=== PATIENT | male | born 1955 | race Caucasian/White ===

== ENCOUNTER → 2024-02-12 10:23 | Outpatient (REF) | payer MEDICARE, SELFPAY | LOC: RCS 10:23 | PROVIDERS: ATTENDING PHYSICIAN Internal Medicine Cardiovascular Disease; FAMILY PHYSICIAN Family Medicine | DX: Q23.1 Congenital insufficiency of aortic valve (principal); I35.1 Nonrheumatic aortic (valve) insufficiency | CPT/HCPCS: 93306 ==

== ENCOUNTER → 2024-05-03 11:35 | Outpatient (REF) | payer MEDICARE, SELFPAY | LOC: RAD 11:35 | PROVIDERS: ATTENDING PHYSICIAN Thoracic Surgery (Cardiothoracic Vascular Surgery); FAMILY PHYSICIAN Family Medicine | DX: I35.0 Nonrheumatic aortic (valve) stenosis (principal); I71.21 Aneurysm of the ascending aorta, without rupture | CPT/HCPCS: 71275; 74174; Q9967 ==

== ENCOUNTER → 2024-09-03 08:54 | Outpatient (REF) | payer MEDICARE, SELFPAY | LOC: RAD 08:54 | PROVIDERS: ATTENDING PHYSICIAN Thoracic Surgery (Cardiothoracic Vascular Surgery); FAMILY PHYSICIAN Family Medicine | DX: I35.0 Nonrheumatic aortic (valve) stenosis (principal); I71.21 Aneurysm of the ascending aorta, without rupture; Z01.818 Encounter for other preprocedural examination | CPT/HCPCS: 75572; Q9967 ==

== ENCOUNTER 2024-09-06 06:04 | Day surgery (SDC) | payer MEDICARE, SELFPAY ==
[2024-09-06] VITALS (14 sets, daily range): BP systolic 102–164; BP diastolic 69–103; BMI 25.4
[2024-09-06] MEDS: LOW STRENGTH ASPIRIN 324 MG PO (06:56)
[2024-09-06] MEDS: TYLENOL 650 MG PO (12:56)
== END 2024-09-06 13:50 | disposition home or self-care (01) ==
LOC: CATH 06:04
PROVIDERS: ATTENDING PHYSICIAN Internal Medicine Interventional Cardiology; FAMILY PHYSICIAN Family Medicine; OTHER PHYSICIAN Internal Medicine Cardiovascular Disease
DX: I25.10 Atherosclerotic heart disease of native coronary artery without angina pectoris (principal); I48.0 Paroxysmal atrial fibrillation; I35.0 Nonrheumatic aortic (valve) stenosis; K21.9 Gastro-esophageal reflux disease without esophagitis; I71.21 Aneurysm of the ascending aorta, without rupture; Z79.01 Long term (current) use of anticoagulants
CPT/HCPCS: 93454; C1769; C1894; Q9967

== ENCOUNTER 2024-09-28 04:55 | Inpatient (IN) | payer MEDICARE, SELFPAY ==
[2024-08-31 11:57] VITALS: BMI 26.5
[2024-08-31 12:38] LABS: Urine Albumin Negative (Neg - Trace); Urine Bilirubin Negative (Negative); Urine Character Clear (Clear); Urine Color Yellow; Urine Glucose Negative (Negative); Urine Ketone Negative (Negative); Urine Leukocyte Negative (Negative); Urine Nitrite Negative (Negative); Urine Occult Blood Negative (Negative); Urine Specific Gravity 1.015 (<1.030); Urine Urobilinogen Negative (Neg - 1+)
[2024-08-31 12:44] LABS: % Basophils 0.7 % (0-2); % Eosinophils 0.6 % (0-6); % Immature Granulocytes 0.2 % (0-0.5); % Monocytes 10.2 % (1.7-9.3); % Neutrophils 66.3 % (42.2-75.2); Absolute Lymphocytes 1.2 10^3/uL (1.2-3.4); Absolute Monocytes 0.6 10^3/uL (0.1-0.6); Absolute Neutrophils 3.6 10^3/uL (1.4-6.5); Hematocrit 41.9 % (39.0-52.0); Hemoglobin 14.5 g/dL (13.0-18.0); Mean Corp Hgb Conc. 34.6 g/dL (33.0-37.0); Mean Corpuscular Hgb 32.1 pg (27.0-31.0); Mean Corpuscular Volume 92.7 fL (80.0-94.0); Mean Platelet Volume 9.9 fL (7.4-10.4); Nucleated Red Blood Cells % 0 % (-); Platelet Count 199 10^3/uL (130-400); Red Blood Cell Count 4.52 10^6/uL (4.70-6.10); Red Cell Dist. Width 13.2 % (11.5-14.5); White Blood Cell Count 5.4 10^3/uL (4.8-10.8)
[2024-08-31 12:47] LABS: APTT 33.2 Sec (23.4-35.0); PT 13.5 Sec (11.4-14.6)
[2024-08-31 13:03] LABS: ALT (SGPT) 21 U/L (0-50); AST (SGOT) 27 U/L (17-59); Albumin 4.3 g/dl (3.5-5.0); Alkaline Phosphatase 53 U/L (38-126); Blood Urea Nitrogen 18 mg/dl (9-20); Calcium 9.2 mg/dl (8.4-10.2); Carbon Dioxide 27 mmol/L (22-30); Chloride 101 mmol/L (98-107); Direct Bilirubin 0.2 mg/dl (0.0-0.4); Estimated Creatinine Clearance 68 ml/min; Glucose 86 mg/dl (70-99); Potassium 4.8 mmol/L (3.5-5.1); Sodium 137 mmol/L (135-145); Total Protein 6.9 g/dl (6.3-8.2); eGFR > 60.00
--- NOTE | 2024-08-31 14:01 | CM ---
Chart reviewed. Met with the patient and in PAT. Reviewed preoperative and postoperative instructions, along with showering instructions. Gave patient 2 soaps. Patient is agreeable to a home visit by CT Transitional RN. Patient currently
uses [facility] in [place], but may be changing their pharmacy after . They will update us on arrival. Patient is independent of ADLS, lives with his in a 1 STH, 2 DRE, 0 DME. Plan is for the patient to return home with CT Transitional RN.
--- NOTE | 2024-09-06 09:23 | ITS.CL.CATH ---
Laboratory Scientist - Catheterization
Cardiac Catheterization
Procedure Report:
LEFT HEART CATHETERIZATION
Date of Procedure: September 06, 2024
Referring: Dr. Zay Webster, Dr. Vega Grossman
PROCEDURES:
1. Coronary angiography
INDICATION: This is a 68-year-old gentleman with a past medical history notable for paroxysmal atrial fibrillation, aortic stenosis, and ascending thoracic aortic aneurysm. He was seen in evaluation by Dr. Webster and scheduled for aortic valve
replacement and aortic root replacement with maze and left atrial appendage exclusion. He is now referred for coronary angiography in anticipation of planned surgical intervention.
ACCESS: Right radial artery, 6 Mauritian sheath
HEMODYNAMICS : (mmHg)
AO (s/d) : 125/78
CORONARY FINDINGS
DOMINANCE: Left
LEFT MAIN: Normal
LEFT ANTERIOR DESCENDING: The LAD arises normally from the left main and runs in the anterior intraventricular groove. The mid LAD has a 30% stenosis near the origin of the first diagonal branch. The mid LAD beyond the diagonal branch has a 50-60%
stenosis with luminal irregularities noted throughout the remainder of the LAD. The distal LAD wraps around the apex
CIRCUMFLEX: The circumflex is a large-caliber dominant vessel giving rise to a large bifurcating OM1. The OM1 bifurcates proximally into 2 sizable daughter branches. The more lateral daughter branch has a 60-70% narrowing at its origin (Note: this
is the middle of the 3-OM branches to the lateral wall). OM 2 is a medium caliber vessel with minor irregularities. The circumflex continues in the AV groove supplying a sizable PDA.
RIGHT CORONARY ARTERY: The right coronary artery is a small nondominant vessel that proved difficult to selectively cannulate with either a JL 4, AR-MOD1, AR-MOD2, or AL1. Nonselective angiography suggested a low anterior origin of a small
nondominant vessel.
VENTRICULOGRAPHY: Not done
RADIATION SUMMARY: Fluoro Time (min): 19.9, Dose (mGy): 574.9, DAP (Gy.cm2) : 43.5
Closure Device: TR Band
CONCLUSIONS
1. Coronary artery disease in OM1 medial daughter branch beyond bifurcation and tandem stenosis in mid LAD
RECOMMENDATIONS
1. Followup with Dr. Webster as scheduled.
Copy to: Dr. Zay Webster, Dr. Vega Grossman
[2024-09-28] VITALS (19 sets, daily range): BP systolic 85–151; BP diastolic 59–95; BMI 25.0
--- NOTE | 2024-09-28 00:39 | W.PN.CT ---
Assessment / Plan
-
Assessment:
-S/p Standard sternotomy/CABG x 2 (In situ MORRISON to LAD, Ao to RSVG to daughter branch of OM 1)/ R LE Endoscopic vein harvest/Aortic valve replacement (27 mm bioprosthesis)/Ascending aortic replacement (30 mm straight graft (STJ to distal ascending
aorta)/Left atrial maze, open surgical [posterior wall isolation with left atrial appendage line]/LAAE [35 mm clip], by Dr. Webster, 09/28/24, pod#1
-Severe aortic valve stenosis with functional bicuspid morphology fused left and right coronary cusp with a moderate degree of aortic valve insufficiency
-Ascending aortic aneurysm measuring greater than 4.5 cm
-Mild pulmonary hypertension
-Mild TR
-Mild MR
-Mild pulm HTN
-2v CAD
-LVEF 60% per intraop DEBI
-A-fib
-GERD
-Seasonal allergies
-Diverticulosis
-Internal hemorrhoids
-Colon polyps
-S/P Colonoscopy with polypectomy, 07/03/22
-S/p Robotic Inguinal Herniorrhaphy, 06/23/2017
-Acute postop blood loss/Anemia (stable without blood transfusion)
-Acute postop atelectasis
-Acute postop hypovolemia with subsequent hypervolemia
Plan:
-No major issues overnight. Hemodynamically and neurologically intact
-Pt successfully extubated yesterday 09/28/24 @ 1625
-Weaned off Levophed last night, remains on insulin gtt per protocol
-Last CI , U/O since OR mL
-Monitor chest tube output: 2meds , L pleural
-AM cxr is pending
-Cont. current meds (ASA, Plavix, Lipitor, Amiodarone, Toprol XL; eventual d/c of Plavix and resumption of Eliquis)
-D/C'd swan and a-line @ 0500
-D/C'd ramirez catheter @ 0600
-Transfer to tele phase today once of insulin gtt per protocol
-Maintain cordis
-Maintain temporary pacer wires (will d/c before home)
-Wean off of O2 as tolerated
-Encourage use of IS
-OOB into chair/Ambulate
Subjective
-
Date of Service: September 28, 2024
Objective Data
-
Lab Results
08/31/24 12:05
08/31/24 06:30
PT 13.5 Sec (11.4-14.6) 08/31/24 12:05
INR 1.00 08/31/24 12:05
APTT 33.2 Sec (23.4-35.0) 08/31/24 12:05
[2024-09-28] MEDS: BACTROBAN 2% OINTMENT 1 APPLIC NASAL ×2 (05:44→19:07)
[2024-09-28] MEDS: LOPRESSOR 25 MG PO (05:44)
[2024-09-28] MEDS: PROTONIX 40 MG PO (05:45)
[2024-09-28] MEDS: MAGNESIUM OXIDE 500 MG PO (05:45)
--- NOTE | 2024-09-28 05:54 | PTCARENOTE ---
admitted pt into 2264. pt confirmed 2 showers and NPO since midnight. clipped, washed with CHG, blood work sent, admission and med rec completed. Postop education provided. all questions answered. meds given. awaiting [facility].
--- NOTE | 2024-09-28 06:38 | W.CVOR.SURPR ---
[facility] Surgeon Immed Pre Op
-
I have examined this patient prior to performance of the scheduled procedure.
The patient's condition is unchanged from the time of the dictated/written History and
Physical and the patient is able to undergo the scheduled procedure.
Sternotomy AVR (biological), Ascending Aorta Replacement (Wheat Procedure)
CABG x 2 (Will search for that OM branch off the first OM)
LA MAZE (Posterior wall isolation)
CAROLINE Clip
[2024-09-28 07:40] LABS: ACT+ - POC 98 Seconds (82-134)
--- NOTE | 2024-09-28 07:47 | CM ---
Reviewed chart. Mr. St is in the operating room today. Prior to admission he resides with his spouse in a one story home with two steps to enter. Prior to admission he was independent with ambulation and adls. He does not have any DME in the
home . He has a prescription plan and uses [facility]. Medial work-up in progress. The discharge plan is to return home with his spouse and a home visit by the Transitional Care Nurse when medically stable.
[2024-09-28 08:03] LABS: Urine Albumin Negative (Neg - Trace); Urine Bilirubin Negative (Negative); Urine Character Clear (Clear); Urine Color Yellow; Urine Glucose Negative (Negative); Urine Ketone Negative (Negative); Urine Leukocyte Negative (Negative); Urine Nitrite Negative (Negative); Urine Occult Blood Negative (Negative); Urine Specific Gravity 1.015 (<1.030); Urine Urobilinogen Negative (Neg - 1+)
[2024-09-28 08:59] LABS: ACT+ - POC 409 Seconds (82-134)
[2024-09-28 09:08] LABS: ACT+ - POC 496 Seconds (82-134)
[2024-09-28 09:26] LABS: B.E. - POC -0.2 mmol/L; Glucose - POC 98 mg/dl (70-99); HCO3 - POC 25 mmol/L (21-28); Hematocrit - POC 33 % PCV (42-52); Hemodilution- POC No; Hemoglobin Calculated - POC 11.1; Ionized Calcium - POC 1.15 mmol/L (1.15-1.33); O2 Saturation %Calculated-POC 99.9 % (94-98); PCO2 - POC 41 mmHg (35-48); PO2 - POC 274 mmHg (83-108); POC Comment PRE; Potassium - POC 4.1 mmol/L (3.5-5.1); Sodium - POC 141 mmol/L (136-145); Specimen Type - POC Arterial; pH - POC 7.39 (7.35-7.45)
[2024-09-28 09:39] LABS: ACT+ - POC 512 Seconds (82-134)
[2024-09-28 09:59] LABS: B.E. - POC 2.8 mmol/L; Glucose - POC 116 mg/dl (70-99); HCO3 - POC 27 mmol/L (21-28); Hematocrit - POC 29 % PCV (42-52); Hemodilution- POC Yes; Hemoglobin Calculated - POC 9.8; Ionized Calcium - POC 1.01 mmol/L (1.15-1.33); PCO2 - POC 37 mmHg (35-48); PO2 - POC 347 mmHg (83-108); POC Comment CPB; Potassium - POC 4.8 mmol/L (3.5-5.1); Sodium - POC 138 mmol/L (136-145); Specimen Type - POC Arterial; pH - POC 7.47 (7.35-7.45)
[2024-09-28 10:11] LABS: ACT+ - POC 460 Seconds (82-134)
[2024-09-28 10:36] LABS: B.E. - POC 1.6 mmol/L; Glucose - POC 172 mg/dl (70-99); HCO3 - POC 26 mmol/L (21-28); Hematocrit - POC 33 % PCV (42-52); Hemodilution- POC Yes; Hemoglobin Calculated - POC 11.3; Ionized Calcium - POC 1.04 mmol/L (1.15-1.33); O2 Saturation %Calculated-POC 99.9 % (94-98); PCO2 - POC 38 mmHg (35-48); PO2 - POC 241 mmHg (83-108); POC Comment CPB; Potassium - POC 5.1 mmol/L (3.5-5.1); Sodium - POC 138 mmol/L (136-145); Specimen Type - POC Arterial; pH - POC 7.44 (7.35-7.45)
[2024-09-28 10:48] LABS: ACT+ - POC 511 Seconds (82-134)
[2024-09-28 11:25] LABS: ACT+ - POC 523 Seconds (82-134)
[2024-09-28 11:51] LABS: B.E. - POC 1.2 mmol/L; Glucose - POC 124 mg/dl (70-99); HCO3 - POC 26 mmol/L (21-28); Hematocrit - POC 32 % PCV (42-52); Hemodilution- POC Yes; Hemoglobin Calculated - POC 10.9; Ionized Calcium - POC 1.11 mmol/L (1.15-1.33); O2 Saturation %Calculated-POC 99.9 % (94-98); PCO2 - POC 42 mmHg (35-48); PO2 - POC 281 mmHg (83-108); POC Comment CPB; Sodium - POC 142 mmol/L (136-145); Specimen Type - POC Arterial
[2024-09-28 11:51] LABS: B.E. - POC 0.3 mmol/L; Glucose - POC 113 mg/dl (70-99); HCO3 - POC 25 mmol/L (21-28); Hematocrit - POC 32 % PCV (42-52); Hemodilution- POC Yes; Hemoglobin Calculated - POC 10.9; Ionized Calcium - POC 1.09 mmol/L (1.15-1.33); O2 Saturation %Calculated-POC 99.8 % (94-98); PCO2 - POC 41 mmHg (35-48); PO2 - POC 231 mmHg (83-108); POC Comment REWARM; Potassium - POC 4.4 mmol/L (3.5-5.1); Sodium - POC 142 mmol/L (136-145); Specimen Type - POC Arterial
[2024-09-28 11:58] LABS: ACT+ - POC 115 Seconds (82-134)
[2024-09-28 12:13] LABS: B.E. - POC -2.4 mmol/L; Glucose - POC 91 mg/dl (70-99); HCO3 - POC 21 mmol/L (21-28); Hematocrit - POC 34 % PCV (42-52); Hemodilution- POC Yes; Hemoglobin Calculated - POC 11.6; Ionized Calcium - POC 1.23 mmol/L (1.15-1.33); PCO2 - POC 33 mmHg (35-48); PO2 - POC 460 mmHg (83-108); POC Comment POST; Sodium - POC 142 mmol/L (136-145); Specimen Type - POC Arterial; pH - POC 7.42 (7.35-7.45)
--- NOTE | 2024-09-28 12:34 | W.PN.CT.SURG ---
CT Surgery Operative Note
-
CARDIAC SURGERY OPERATIVE REPORT
Preoperative Diagnosis: Severe aortic valve stenosis with multivessel coronary artery disease and ascending aortic aneurysm with atrial fibrillation
Postoperative Diagnosis: Same
Procedure(s) Performed:
1. Standard sternotomy with aortic and right atrial cannulation
2. Coronary artery bypass grafting x 2 (In situ MORRISON to LAD, Ao to RSVG to daughter branch of OM 1)
3. Surgical aortic valve replacement [27 mm bioprosthesis] and ascending aortic replacement with a 30 mm straight graft (STJ to distal ascending aorta)
4. Left atrial maze, open surgical [posterior wall isolation with left atrial appendage line]
5. Left atrial appendage exclusion [35 mm clip]
6. Placement of temporary atrial and ventricular pacing wires
7. Endoscopic vein harvest of the right lower extremity
8. Trans-esophageal echocardiography
Date of Surgery: 09/28/2024
Comorbidities:
1. Severe aortic valve stenosis with functional bicuspid morphology fused left and right coronary cusp with a moderate degree of aortic valve insufficiency
2. Ascending aortic aneurysm measuring greater than 4.5 cm
3. Mild pulmonary hypertension
4. Coronary artery disease
5. Mild mitral valve insufficiency
6. GERD
7. Paroxysmal atrial fibrillation on chronic anticoagulation
Attending Surgeon: Zay Webster MD, MS
Assistants: Sully Hurley PA-C (present and necessary to manufacturing assistant, retraction, suction, exposure, suture management, and wound closure under my direction) & Rebecca Lai PA-C (Endo vein harvest)
Anesthesiology: Luis Green MD and Davion Esparza CRNA
Scrub and Circulating RNs: Jose C Ferrari, RN, Matty Gandara RN
Manager Union: Jo-Ann Medina CCP
Anesthesia: GETA
EBL: per perfusion records
Products: None
CPB Time: 157 minutes
Aortic Cross Clamp Time: 135 minutes
Indication(s) for Procedures: This is a 68-year-old male with severe aortic valve stenosis with relatively new onset atrial fibrillation, moderate degree of aortic valve insufficiency and newly found coronary artery disease. At the time for
consultation he met stage C symptomatology and met class IIa indication for intervention. He was initially seen in March 2024 then later followed up with me in July 2024. Multidisciplinary consensus was to pursue aortic valve replacement,
ascending aortic replacement, left atrial maze, left atrial Penders exclusion, and CABG x 2. He was counseled on his STS risks and the benefits of surgery were discussed with the patient. Shared decision making was to pursue operative intervention.
Aortic Valve Description: Functional bicuspid aortic valve with fusion of the left and right coronary cusp. Heavily calcified with extension into the annulus and along the aorto mitral curtain. Based on the TAVR CT and visualization in the
operating room, both his left and right coronary ostia with appropriate heights for future intervention.
Conduit(s) Quality:
MORRISON -partially skeletonized/excellent flow
RSVG -good/overall relatively uniform, good size and thickness with no significant
Target(s) Quality:
OM -the branch of the first OM was identified between the 3 significant branches/test dosing of antegrade down the graft yielded a flow of approximately 50 cc a minute at a pressure of 80 mmHg with good visual flow in the lateral territory
LAD -I grafted the LAD at the second tandem lesion, opening across the lesion and extending incision approximately 5 mm before and after the area of disease/there is excellent visual flow in the LAD territory with obvious pinking up of the heart
Findings: LVEF on intraoperative DEBI was 65% and 65% post procedure with no new regional wall motion abnormalities. In fact he was hyperdynamic and appeared to be a bit under resuscitated. There was no prosthetic PVL or AI. Mean gradient across the
prosthesis was 6 mmHg. both the left and right coronary ostia were visualized and appeared to be of appropriate height for future TAVR intervention. The valve was replaced with a 27 mm bioprosthesis and secured to place with a total of 17
nonpledgeted 2 Ethibond sutures with core knots. Using a freestyle sizer, the ascending aorta was resected up to the distal portion until I found normal aortic tissue that was not ulcerated. It was sized to a 30 mm straight tube graft which was
initially inverted inside of the LVOT. After performing the proximal anastomosis the graft was then diverted and the distal anastomosis was performed with 4-0 Prolene in a running fashion. Both suture lines were reinforced with a gasket of bovine
pericardium. The MORRISON was harvested in a partially skeletonized fashion. Following bypass grafting, test dose cardioplegia was given down each distal and confirmed patency and hemostasis. He did not require any inotropic support and cardiac index
following surgery was 2.12. He did require short period of AV pacing but then regained sinus rhythm in the 60s. No blood products were given. A left atrial maze was performed isolating his posterior wall along with division of the ligament of
Tyree and left atrial appendage line by opening the tip of the left atrial appendage and using the RF ablation clamp down through into the left superior pulmonary vein. The left atrial pannus was verified to be free of any thrombus or debris
preoperatively and clipped flush to the base with a 35 mm device. There was no residual flow in the LAD stump at the conclusion of the case
Specimen(s): Ascending aortic tissue, aortic valve.
MAZE Lesion Sets:
1. Box lesion to posterior LA wall
2. CAROLINE lesion + CAROLINE Exclusion + Division of Ligament of Tyree
Prosthesis:
1. 35 mm clip, serial #[id number]
2. 27 mm Medtronic Avalus ultra bioprosthetic valve, serial number [id number]
3. 30 mm straight [employer] woven vascular graft, serial #[id number]
4. Bovine pericardial patch, serial number X [id number]
Description of Procedure: The patient was taken to the operating room. Their identity and procedure to be performed were verified and they were positioned supine on the operating table. Induction via general anesthesia with endotracheal intubation
was performed and central venous access and arterial monitoring were inserted. A preoperative transesophageal echocardiogram was performed. The patient was then prepped and draped from chin to feet in a sterile fashion. A preoperative time-out was
performed with all members of the team present. A midline chest incision was performed along with median sternotomy. Simultaneous endoscopic access of the right lower extremity for saphenous vein harvest was obtained along with administration of an
initial 5,000 units of IV heparin. A RulTract sternal retractor was positioned to exposure the left internal mammary bed. The mammary was harvested in a skeletonized fashion and found to have good flow. A bulldog clamp was applied to the distal end
of the mammary after dividing it. It was wrapped in a papaverine soaked RayTec and replaced back into the left hemithorax. The RulTract was exchanged for a median sternal retractor. The innominate vein was isolated. Full heparinization was given (a
total of 60,000 units). I created a pericardial well. The aortic cannulation site was chosen where it was soft, pliable, and free of calcium. Cannulation was performed with an arterial cannula in the proximal arch and a triple-stage venous cannula
through the right atrial appendage. The arterial cannula line had an appropriate bounce and correlating pressures with test dosing. Next, a root vent/antegrade cannula was inserted into the ascending aorta. The ACT was confirmed to be over 400 and
retrograde autologous priming was performed before commencing cardiopulmonary bypass. At this point the SVC was away from the right pulmonary artery. It oblique sinus was also developed. The encompass RF ablation clamp was passed
underneath the SVC and IVC across the transverse sinus and oblique sinus performing 3 successful pairs of ablation. The pulmonary artery was away from the aorta to facilitate a clamp site. The aortic cross-clamp was placed after
decreasing the flow on the bypass and mean arterial pressure. A total of 1.0L initial dose of antegrade Del-Nido cardioplegia solution was given and planned for re-dosing every 90 minutes as necessary. There was rapid electro-mechanical arrest of
the heart at 500 cc of cardioplegia with pulsation of the aorta. The left ventricle was observed for distention on echocardiogram and manual palpation. Cold slush was placed into a sponge and topically on the RV while we systemically cooled to 34
degrees centigrade. Once the heart was fully arrested it was rotated medially and positioned in order to expose left atrial appendage. The ligament of Tyree was divided here. The tip of the left atrial appendage was excised off and the RF
ablation clamp was placed through this opening into the left superior pulmonary vein performing 2 successful pairs of ablation. At this point the left atrial appendage was sized with 35 mm clip which was deployed flush to the base.
I positioned the heart to expose the lateral wall. A [place] blade was used to expose the coronary and perform the arteriotomy. Coronary Stanley scissors were used to enlarge the incision. The saphenous vein was trimmed and beveled to an appropriate
size. The distal anastomosis was performed using 7-0 prolene in an end-to-side fashion. Antegrade cardioplegia was administered into the graft. Appropriate hemostasis and flow were confirmed. The graft was measured for length to the aorta and cut.
A suitable target on the mid/distal left anterior descending was identified. I chose to open at the distal lesion at the small diagonal and extended the incision distally and proximally across the lesion. We dissected and prepared the distal target
in a similar fashion. We retrieved the MORRISON from the chest and created a pericardial opening while being cognizant of the phrenic nerve to facilitate the course of the mammary. The distal end of the mammary was prepped and beveled to size. We
verified orientation and length of the CHUCHO and found brisk flow. An end-to-side anastomosis was created with a 7-0 prolene. We temporarily released the bulldog clamp on the mammary to inspect flow. Perfusion to the LAD territory was visualized and
hemostasis was confirmed and required several repair sutures . The bull clamp was replaced on the mammary.
Carbon dioxide was used to flood the field. I turned my attention to the aortic valve and manually identified the location of the right coronary take off. An aortotomy was made approximately 1.5cm above the sinotubular junction. The location of both
left and right coronary vessels were visualized in the root after the aorta was fully transected. The aortic valve was inspected and found to be heavily calcified. The leaflets were excised and sent for pathological assessment. The annulus was
debrided of any calcium. The root and left ventricular outflow tract were thoroughly irrigated to remove any debris. A total of 17, nonpledgeted 2-0 ethibond annular sutures were placed [id number] circumferentially. These were brought through the
sewing cuff of the prosthetic valve which as then parachuted into place. The left and right coronary ostia were visualized and were unobstructed by the valve. A Cor-Knot device was used to secure the annular sutures. The valve was inspected and was
well seated. At this point using a freestyle sizer I opted to use a 30 mm straight tube graft. A portion of the graft was cut and then inverted and placed inside the LVOT. The proximal aortic suture line was approximated with 4-0 prolene in a
single layer with bovine pericardium and the outside as a gasket. Once it was complete the graft was then pulled back out through. I then dropped the flows on cardiopulmonary bypass and then reposition the clamp more distally until I reached a
point in which the intima of the aorta appeared to be normal. Of note he had significant plaque in ulcerations of his mid ascending thoracic aorta. The graft was then beveled accordingly and the distal suture line was performed with 4-0 Prolene in
a running fashion using bovine pericardial on the external surface of the gasket. I created 1 hole in the ascending aortic graft using an eye cautery. The proximal anastomoses were created in an end-to-side fashion using 6-0 prolene. At the same
time, we started to re-warm to 36.5 degrees centigrade. The bulldog clamp was removed from the mammary and temporary bipolar ventricular pacing wires were placed on the base of the right ventricle. Additional pacing wires were placed at the SVC
right atrial junction. An 18-gauge needle was then used to puncture the ascending aortic graft for de-airing. The patient was placed in a Trendelenburg position and flows on bypass were lowered. The aortic cross clamp was removed and flows were
slowly brought back up. The aortic suture line appeared hemostatic. Additional hemostatic agents were placed around the suture line for reinforcement. All bypass grafts were inspected and were free from kinking or twisting. The distal and proximal
anastomoses appeared hemostatic. De-airing maneuvers were performed. Transesophageal echocardiography revealed no paravalvular leak and appropriate prosthetic function. Once de-airing was satisfactory, the left ventricular was removed. After
verifying acceptable parameters, we initiated weaning from cardiopulmonary bypass. Once we were off cardiopulmonary bypass, the venous cannulas was clamped and removed. A test dose of protamine was administered and the patient was monitored for any
adverse reaction before resuming protamine. Once half of the protamine dose was delivered, pump suckers were turned off and the systolic blood pressure was lowered for aortic decannulation. The aortic cannula was removed and pursestrings were tied
down. All cannulation sites were oversewn with a 4-0 prolene. The aortic line, proximal, and distal coronary anastomoses were hemostatic. The mammary bed was inspected and hemostasis was confirmed. Once the mediastinum was hemostatic, a 19Fr Lorenzo
drain was placed in the left pleural cavity and two 24Fr Lorenzo drains were placed within the pericardium. The sternum was approximated with 4#7 single and 3 #8 double stainless steel wires. Fascia was approximated with #1 vicryl suture. The
subcutaneous, dermis and epidermis were closed in layers in a running fashion. The skin wound was cleansed and dressed.
All instrument, sponge, and needle counts were confirmed to be correct x 2 at the end of the operation. The patient was transferred to the cardiac intensive care unit in critical but stable condition.
I, Dr. Zay Webster, was present, scrubbed for, and performed all critical elements of this procedure.
Zay Webster MD, MS
Cardiothoracic Surgeon
[facility]
This operative dictation was created using the Graffle dictation system. Please excuse any grammatical, typographical, or 'sound alike' errors
[2024-09-28] MEDS: NSS 500 IV (12:35)
--- NOTE | 2024-09-28 12:44 | W.PN.UPDATE ---
Update Note
Progress Note Update
Crystalloid:� 300
U.O.:� 450
UF:� 1900
Blood:� None
Wires:� A+V
Inotropes:� None
Pressors:� None (levo off upon arrival, slightly hypertensive and was given nitro by anesthesia)
Sedatives:� Precedex
�
NEURO: sedated on precedex, pupils +2mm B/L
RESP: #8OT @22cm> 14/500/40/5. Lungs clear B/L. 2 mediastinal (10cc on arrival) and L pleural (5cc on arrival) chest tubes to -20cm suction. Sanguineous drainage
CV: RRR +S1, S2, no S3, no�rub, no murmur. Dermabond to median sternotomy. RIJ w/[place] locked @ 48cm.
ABD: round, soft, no BS
EXT: no edema, +2/4 DP pulses B/L, no femoral bruit, left LE CRYSTAL wrap intact; right radial A-line intact
: Gandhi with clear yellow urine
�
A/P: POD #0 s/p AVR #27 Avalus valve, #30 Asc Ao graft, CABG x2, MAZE, LAAC
DEBI: EF is now approximately 70% with no new RWMA.
- wean and extubate
- Monitor CT and urine output
- Follow up labs and CXR
- Maintain SBP 90-110
- Will start ASA tonight
- EKG obtained
- Cards consulted
- will need instruction regarding antibiotic prophylaxis for dental and invasive procedures
�
# acute surgical blood loss anemia-expected
- trend CBC
�
# post-operative hyperglycemia
- insulin infusion x 24h
- Hgb A1c 5.0
�
# Hyperlipidemia
- resume�statin when tolerating PO
[2024-09-28 12:48] LABS: Glucose - Point of Care 135 mg/dl (70-99)
[2024-09-28 12:58] LABS: B.E. 1.7 mmol/L; HCO3 26.6 mmol/L (21-28); Ionized Calcium 1.23 mMOL/L (1.15-1.33); O2 Saturation % 99.6 % (94-98); PCO2 42 mmHg (35-48); PO2 158 mmHg (83-108); Sodium 137 mMOL/L (136-145); pH 7.41 (7.35-7.45)
[2024-09-28 13:04] LABS: Hematocrit 30.6 % (39.0-52.0); Hemoglobin 10.7 g/dL (13.0-18.0); Platelet Count 158 10^3/uL (130-400)
[2024-09-28 13:09] LABS: INR 1.54; PT 18.7 Sec (11.4-14.6)
[2024-09-28 13:10] LABS: APTT 40.2 Sec (23.4-35.0)
[2024-09-28 13:16] LABS: Blood Urea Nitrogen 18 mg/dl (9-20); Estimated Creatinine Clearance 80 ml/min; Glucose 132 mg/dl (70-99); Magnesium 3.1 mg/dl (1.6-2.3)
[2024-09-28 13:46] LABS: Glucose - Point of Care 135 mg/dl (70-99)
--- NOTE | 2024-09-28 13:49 | PTCARENOTE ---
Pt received from [facility] at 1235; Sedated and intubated; SR with prolonged QT rhythm on monitor; VSS; Epicardial AV wires present with temporary pacemaker settings DDD 40/2/0.5 40/2/2.0; +2 right DP, +1 left DP and +2 radial pulses present; Lungs
diminished throughout; ETT size 8 positioned and secured at 22 cm right lip; Ventilator settings SIMV 14/5/5 FiO2 40%; CTx3 to -20 cm wall suction draining bloody drainage - no air leak, tidaling, or crepitus noted; Hypoactive BS; Gandhi catheter in
place draining clear, yellow urine; Right groin puncture site glued and approximated - CDI, Sternal Midline Incision glued and approximated - CDI, RLE wrapped in CRYSTAL wrap - CDI; A-line in right radial artery, Alba floated to 45 cm in RIJ Cordis -
all lines zeroed and level; PIVx1 #18 RAC; Levo/Insulin/Precedex/Cardene infusing - see nursing flowsheets for further details; See nursing documentation for further information.
CO: 3.74
CI: 2.09
SVR: 1,304
--- NOTE | 2024-09-28 13:56 | CON.INTV ---
Consultation
Consultation Request
Date/Time Consultation Requested: 09/28/24
Date/Time Consultation Performed: 09/28/24
Performing Provider: Luisa
Reason for Consultation: CVICU
Medical History
-
History of Present Illness:
Patient is a 68-year-old male with previous history of GERD, seasonal allergies, A-fib, MR presenting for elective severe aortic valve stenosis that was well-known. Underwent coronary bypass grafting x 2 with surgical aortic valve replacement
without complications. He is postoperatively transferred to CVICU for further management.
Past Medical History
Past Medical History: Other (see list below)
Social History
Tobacco: Non-smoker
Alcohol: None
Drug: None
Family History
Family History: Reviewed & Not Pertinent
Allergies / Home Medications
Allergies
Allergy/AdvReac Type Severity Reaction Status Date / Time
No Known Drug Allergies Allergy none Verified 09/28/24 05:38
pollen extracts Allergy Sneezing, Verified 09/28/24 05:38
Rhinitis
Home Medications
�Medication �Instructions �Recorded �Confirmed �Last Taken �Type
acetaminophen 500 mg tablet 1,000 mg PO Q6H PRN Pain 08/27/24 09/28/24 Unknown History
apixaban 5 mg tablet (Eliquis) 5 mg PO BID 08/27/24 09/28/24 09/24/24 21:00 History
ascorbic acid (vitamin C) 500 mg 500 mg PO DAILY 08/27/24 09/28/24 09/21/24 09:00 History
tablet (Vitamin C)
cyanocobalamin (vitamin B-12) 1,000 mcg PO DAILY 08/27/24 09/28/24 09/05/24 08:00 History
1,000 mcg tablet (Vitamin B-12)
famotidine 40 mg tablet 40 mg PO DAILY 08/27/24 09/28/24 09/27/24 09:00 History
fluticasone propionate 50 2 spray intranasal DAILY PRN 08/27/24 09/28/24 Unknown History
mcg/actuation nasal Allergy Symptoms
spray,suspension (Flonase Allergy
Relief)
folic acid 800 mcg tablet 0.8 mg PO DAILY 08/27/24 09/28/24 09/21/24 09:00 History
metoprolol succinate 25 mg 25 mg PO DAILY 08/27/24 09/28/24 09/27/24 09:00 History
tablet,extended release 24 hr
multivitamin 1 tab PO DAILY 08/27/24 09/28/24 09/21/24 09:00 History
pyridoxine (vitamin B6) 100 mg 100 mg PO DAILY 08/27/24 09/28/24 09/21/24 09:00 History
tablet (Vitamin B-6)
atorvastatin 40 mg tablet 40 mg PO DAILY #90 tabs 09/06/24 09/28/24 09/27/24 21:00 Rx
Review of Systems
-
Unable to Obtain full review of systems at this time due to: Patient Intubation
Vitals / Labs / Diagnostic Testing
Vital Signs
Temp Pulse Resp BP Pulse Ox
97.2 F 69 16 89/63 98
09/28/24 13:00 09/28/24 13:52 09/28/24 13:52 09/28/24 13:10 09/28/24 13:52
Lab Data
09/28/24 12:37
Laboratory Results
09/28/24
12:37
PT 18.7 H
INR 1.54
APTT 40.2 H
pH 7.41
pCO2 42
pO2 158 H
HCO3 26.6
O2 Delivery Level
Diagnostic Testing:
Physical Exam
-
HEENT: Normocephalic, Anicteric and Moist Mucous Membranes
Cardiovascular: S1/S2 and Regular Rhythm
Respiratory: Clear, Non-Labored Respirations and Other (ETT/chest tube in place)
GI: Soft, Non Distended and Non Tender
Neurology: Awake, Alert, Oriented and No Motor Deficits
Skin: Warm, Dry and Good Color
General: Comfortable and Other (NAD)
Assessment
-
Patient is a 68-year-old male with previous history of GERD, seasonal allergies, A-fib, MR presenting for elective severe aortic valve stenosis that was well-known. Underwent coronary bypass grafting x 2 with surgical aortic valve replacement
without complications. He is postoperatively transferred to CVICU for further management.
Severe s/p AVR, CAD s/p CAB x 2 09/28/24
Perioperative mechanical ventilation
Mild postoperative anemia
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
Mitral regurgitation
GERD
Seasonal allergies
Colon polyps
A-fib
Inguinal hernia repair with mesh 2017
Plan
S/p AVR/CAB POD #0
Titrate off pressors per protocol
ECHO reviewed with normal function, mild VHD, mild PH noted
PA catheter readings reviewed
Management of chest tubes per primary service
Intubated/sedated, initiate SAT when able
Pain control
RASS goal of 0 to -1
Intubated for procedure, SBT trial when patient able to spontaneously breath
Current vent settings: SIMV 500/14/40/5+
ABG(s) reviewed/adequate
CXR with no obvious opacities/infiltrates, low lung volumes, ETT in good position, lines/tubes in place
Extubate per protocol
Maintain supplement oxygen as needed
No prior history of pulmonary disease
No Prior PFTs for review
Can add nebulizers if needed
Aspiration precautions
Encouraged incentive spirometry, OOB/ambulation/early mobility
Advance diet as tolerated following extubation
GI prophylaxis if indicated for mechanical ventilation >48 hours
Monitor critical I/O's
Gandhi/chest tube output
Hb/platelets postoperatively stable
Trend CBC for now
Can transfuse if indicated for Hb <7, plt <50 in surgical patients
DVT prophylaxis including SCDs
Insulin protocol initiated and ongoing
Transition to SQ/off as indicated per team
We will follow
Diagnostic Data
Chest X-Ray: 09/28/24- Postoperative changes with appropriate positioning of support lines and tubes. No pneumothorax.
CT Scan: CTA 09/03/24- Chest: Fusiform aneurysmal dilatation of the ascending thoracic aorta measuring up to 4.6 cm. Mild to moderate coronary artery calcifications. No pulmonary nodules, areas of airspace disease, pleural effusions, pericardial
effusions or enlarged lymph nodes in the thorax. Origins of the great vessels from the aortic arch are patent.
Echo: DEBI 09/28/24- Overall LVEF is approximately 60% with no RWMA. Normal left ventricular systolic function. Moderate concentric left ventricular hypertrophy. Mildly enlarged right ventricular size.
Moderately dilated right atrium. Coronary sinus is dilated. Moderate tricuspid regurgitation. Estimated pulmonary artery systolic pressure of 40-45 mmHg. Mild mitral regurgitation. MR jet is central due to mild annular dilation. Severe aortic
stenosis. Moderate aortic insufficiency. AV is functionally bicuspid with RCC/LCC fusion. NEELIMA calculates to 0.9 cm2 by continuity equation. Mid ascending aorta is dilated measuring 4.4 cm at the level of the RPA. Mobile atheroma noted in the
distal arch. Mild sessile atheroma seen in the descending aorta.
PFT's:
Reports and relevant images were personally reviewed.
-----
Critical care time 52 mins -- this includes review of history, physical exam, medications, hemodynamic/ventilator parameters, laboratory data, imaging and discussion with house staff, pharmacy, respiratory therapy, foreman/project manager, and nursing.
--- NOTE | 2024-09-28 14:14 | W.PN.CARDCBS ---
Addendum entered and electronically signed by Edward Alonso MD 09/28/24 15:17:
patient seen and examined
agree with BHARAT Lee's notes and assessment
agree with BHARAT Lee's plan
Seen and examined postoperatively
exam:
cordis r neck w swan
intubated and sedated
jvp 6
cor regular sinus no m
tubes noted
abd soft nt nd
no ext edema
Assessment:
Severe aortic stenosis, bicuspid valve
Multivessel CAD
Ascending aortic aneurysm
Status post surgical bioprosthetic AVR, ascending aorta replacement, CABG x 2 (in situ MORRISON to LAD, ao to RSVG to daughter branch of OM1), maze, CAROLINE clip 09/28/2024
Paroxysmal atrial fibrillation
Chronic anticoagulation with Eliquis
GERD
Hyperlipidemia
Acute postoperative anemia
ECHO 02/12/2024: EF 55 to 60%, moderate concentric LVH, moderate MR, bicuspid aortic valve with severe with peak/mean gradients 82/47 mmHg, NEELIMA 0.7 cm�, mild TR, PAP 25 to 30 mmHg
Plan:
-Status post surgical bioprosthetic AVR, ascending aorta replacement, CABG x 2 (in situ MORRISON to LAD, ao to RSVG to daughter branch of OM1), maze, CAROLINE clip 09/28/2024
-Waking up. Remains intubated
-CI 2.09. Weaning levo. Blood pressure is low but stable, follow
-In sinus rhythm on review of postop EKG as well as telemetry. follow QTc, prolonged by EKG 09/28
-Eventually resume anticoagulation when okay per surgery, was on eliquis preop. For now continue aspirin, Plavix
-Continue postoperative care
-Discussed with nursing
Original Note:
Today's Communication / Plan
-
continue post op care
Impression / Plan
-
Primary Pile Fabric Knitter: Dr. LILIAN Grossman
Assessment:
Severe aortic stenosis, bicuspid valve
Multivessel CAD
Ascending aortic aneurysm
Status post surgical bioprosthetic AVR, ascending aorta replacement, CABG x 2 (in situ MORRISON to LAD, ao to RSVG to daughter branch of OM1), maze, CAROLINE clip 09/28/2024
Paroxysmal atrial fibrillation
Chronic anticoagulation with Eliquis
GERD
Hyperlipidemia
Acute postoperative anemia
ECHO 02/12/2024: EF 55 to 60%, moderate concentric LVH, moderate MR, bicuspid aortic valve with severe with peak/mean gradients 82/47 mmHg, NEELIMA 0.7 cm�, mild TR, PAP 25 to 30 mmHg
Plan:
-Status post surgical bioprosthetic AVR, ascending aorta replacement, CABG x 2 (in situ MORRISON to LAD, ao to RSVG to daughter branch of OM1), maze, CAROLINE clip 09/28/2024
-Waking up. Remains intubated
-CI 2.09. Weaning levo. Blood pressure is low but stable, follow
-In sinus rhythm on review of postop EKG as well as telemetry. follow QTc, prolonged by EKG 09/28
-Eventually resume anticoagulation when okay per surgery, was on eliquis preop. For now continue aspirin, Plavix
-Continue postoperative care
-Discussed with nursing
Progress Note - Pile Fabric Knitter
Subjective
Date of Service: September 28, 2024
waking up. nods head appropriately
Objective
Labs:
09/28/24 12:37
Labs
Hgb 10.7 g/dL (13.0-18.0) L 09/28/24 12:37
Hct 30.6 % (39.0-52.0) L 09/28/24 12:37
Plt Count 158 10^3/uL (130-400) 09/28/24 12:37
PT 18.7 Sec (11.4-14.6) H 09/28/24 12:37
INR 1.54 09/28/24 12:37
APTT 40.2 Sec (23.4-35.0) H 09/28/24 12:37
Sodium 137 mmol/L (135-145) 08/31/24 06:30
Potassium 4.8 mmol/L (3.5-5.1) 08/31/24 06:30
BUN 18 mg/dl (9-20) 09/28/24 12:37
Creatinine 0.8 mg/dL (0.7-1.3) 09/28/24 12:37
Glucose 132 mg/dl (70-99) H 09/28/24 12:37
Vital Signs and I&O:
Vital Signs
Temp Pulse Resp BP Pulse Ox
97.7 F 69 14 64 98
09/28/24 14:00 09/28/24 14:00 09/28/24 14:00 09/28/24 14:00 09/28/24 14:00
Vital Signs
Temp Pulse Resp BP Pulse Ox
97.7 F 69 14 98
09/28/24 14:00 09/28/24 14:00 09/28/24 14:00 09/28/24 14:00 09/28/24 14:00
Intake & Output
09/26/24 09/27/24 09/28/24 09/29/24
07:59 07:59 07:59 07:59
Intake Total 167.8 / 167.8
Output Total 220 / 220
Balance -52.2 / -52.2
Physical Exam
Physical Exam
GEN: No distress, groggy, intubated. oriented to self. on shelby hugger
HEENT: supple, anicteric, mmm
LUNGS: CTA B/L anterolaterally, no wheezes/rales
CV: Reg, S1/S2, no murmur
EXT: No cyanosis, clubbing, edema
NEURO: sedated
SKIN: Warm, pink, dry. No rash. Sternotomy incision c/d/i.
[2024-09-28] MEDS: LR 250 ML IV ×2 (14:30→14:50)
[2024-09-28] MEDS: ANCEF 10 IV ×2 (14:33→14:34)
[2024-09-28] MEDS: NEURONTIN PO ×2 (14:33→15:19)
[2024-09-28] MEDS: LIPITOR PO (14:33)
[2024-09-28] MEDS: TYLENOL PO (14:34)
[2024-09-28 15:06] LABS: Glucose - Point of Care 100 mg/dl (70-99)
[2024-09-28] MEDS: PACERONE PO (15:19)
--- NOTE | 2024-09-28 15:20 | PTCARENOTE ---
RT in room and patient placed on CPAP trial. ABG's due at 4385
[2024-09-28 15:58] LABS: Glucose - Point of Care 117 mg/dl (70-99)
[2024-09-28 16:06] LABS: B.E. 0.3 mmol/L; HCO3 25.4 mmol/L (21-28); PCO2 42 mmHg (35-48); PO2 171 mmHg (83-108); Potassium 3.8 mMOL/L (3.5-5.1); Sodium 140 mMOL/L (136-145); pH 7.39 (7.35-7.45)
--- NOTE | 2024-09-28 16:28 | PTCARENOTE ---
ABG's reviewed; RT at bedside; Patient extubated at 1625 and placed on 6L NC.
[2024-09-28] MEDS: TORADOL 15 MG IV (16:39)
[2024-09-28] MEDS: KCL 50 IV ×2 (16:47→17:49)
[2024-09-28 17:00] LABS: Glucose - Point of Care 86 mg/dl (70-99)
[2024-09-28] MEDS: LOW STRENGTH ASPIRIN 81 MG PO (17:19)
[2024-09-28] MEDS: DILAUDID 0.5 MG IV (17:44)
[2024-09-28 17:47] LABS: Hematocrit 31.8 % (39.0-52.0); Hemoglobin 11.2 g/dL (13.0-18.0); Platelet Count 191 10^3/uL (130-400)
[2024-09-28 19:01] LABS: Glucose - Point of Care 102 mg/dl (70-99)
[2024-09-28] MEDS: ANCEF 5 IV (19:06)
--- NOTE | 2024-09-28 19:18 | PTCARENOTE ---
Patient weaned to 2L NC - SpO2 98-100%; IS 1000 ml; One time order of IV Toradol 15 mg ordered and given for pain; PRN IV Dilaudid 0.5 mg given accordingly for pain; LR bolus given x2; Potassium repleted x2.
[2024-09-28] MEDS: ZOFRAN 4 MG IV (19:58)
[2024-09-28 21:01] LABS: Glucose - Point of Care 104 mg/dl (70-99)
[2024-09-28] MEDS: NEURONTIN 100 MG PO (21:05)
[2024-09-28] MEDS: SENOKOT-S 1 TABLET PO (21:06)
[2024-09-28] MEDS: TYLENOL 1000 MG PO (21:06)
[2024-09-28] MEDS: DILAUDID 0.25 MG IV (21:12)
--- NOTE | 2024-09-28 22:49 | PTCARENOTE ---
Patient's arterial line BP 110's-120's/60'-70's - [facility] Ed B. notified and states to go by cuff pressure/no need for cardene infusion at this time for SBP; Urine output 20 ml for last hour - [facility] Ed B. notified and no further orders at this time
[2024-09-28 23:13] LABS: Glucose - Point of Care 84 mg/dl (70-99)
--- NOTE | 2024-09-28 23:40 | PTCARENOTE ---
received pt from previous rn. pt is NSR with prolonged QT rhythm on monitor; VSS; Epicardial AV wires present with temporary pacemaker settings DDD 40/2/0.5 40/2/2.0; +pulses; Lungs diminished; pox 98% on 2L, CTx3 to -20 cm wall suction draining
bloody drainage - no air leak, tidaling, or crepitus noted; Hypoactive BS; Gandhi catheter in place draining clear, yellow urine; Right groin puncture site glued and approximated - CDI, Sternal Midline Incision glued and approximated - CDI, RLE
wrapped in CRYSTAL wrap - CDI; A-line in right radial artery, Alba floated to 45 cm in RIJ Cordis - all lines zeroed and level; PIVx1 #18 RAC, plan of care discussed
[2024-09-29] VITALS (26 sets, daily range): BP systolic 86–133; BP diastolic 59–85; PULSE 72; O2SAT 98–99; BMI 25.5
[2024-09-29] MEDS: DILAUDID 0.25 MG IV (01:01)
[2024-09-29 01:07] LABS: Glucose - Point of Care 95 mg/dl (70-99)
--- NOTE | 2024-09-29 01:41 | PTCARENOTE ---
pts A-line SBP and BP Cuff SBP have a 20 mmHg difference CTPA Luis Serrato made aware and to follow BP cuff pressure
[2024-09-29 02:06] LABS: Glucose - Point of Care 101 mg/dl (70-99)
[2024-09-29] MEDS: DILAUDID 0.5 MG IV (02:14)
[2024-09-29 03:16] LABS: Glucose - Point of Care 100 mg/dl (70-99)
[2024-09-29 03:21] LABS: Mixed Venous O2 Saturation 65.8 %
[2024-09-29 03:46] LABS: Blood Urea Nitrogen 25 mg/dl (9-20); Carbon Dioxide 24 mmol/L (22-30); Chloride 107 mmol/L (98-107); Estimated Creatinine Clearance 80 ml/min; Glucose 101 mg/dl (70-99); Magnesium 2.6 mg/dl (1.6-2.3); Potassium 4.5 mmol/L (3.5-5.1); Sodium 139 mmol/L (135-145); eGFR > 60.00
[2024-09-29 03:53] LABS: Hematocrit 31.6 % (39.0-52.0); Hemoglobin 10.8 g/dL (13.0-18.0); Mean Corp Hgb Conc. 34.2 g/dL (33.0-37.0); Mean Corpuscular Hgb 31.4 pg (27.0-31.0); Mean Corpuscular Volume 91.9 fL (80.0-94.0); Mean Platelet Volume 9.8 fL (7.4-10.4); Platelet Count 169 10^3/uL (130-400); Red Blood Cell Count 3.44 10^6/uL (4.70-6.10); Red Cell Dist. Width 12.3 % (11.5-14.5); White Blood Cell Count 10.4 10^3/uL (4.8-10.8)
--- NOTE | 2024-09-29 03:55 | W.PN.CT ---
Today's Communication / Plan
-
Plan:
-No major issues overnight. Hemodynamically and neurologically intact
-Pt successfully extubated yesterday 09/28/24 @ 1625
-Weaned off Levophed last night, remains on insulin gtt per protocol
-Last CI 2.11, MVO2 65.8%, U/O since OR 715 mL
-Monitor chest tube output: 2meds 160/290, L pleural 40/105 (may be able to d/c L pleural ches tube if no significant dump when OOB)
-AM cxr looks clear to my eyes, no ptx. F/U official report
-Cont. current meds (ASA, Plavix, Lipitor, Amiodarone, Toprol XL; eventual d/c of Plavix and resumption of Eliquis)
-D/C'd swan and a-line @ 0420
-D/C ramirez catheter @ 0600
-Transfer to tele phase today once of insulin gtt per protocol
-Maintain cordis
-Maintain temporary pacer wires (will d/c before home)
-Wean off of O2 as tolerated
-Encourage use of IS
-OOB into chair/Ambulate
Assessment / Plan
-
Assessment:
-S/p Standard sternotomy/CABG x 2 (In situ MORRISON to LAD, Ao to RSVG to daughter branch of OM 1)/ R LE Endoscopic vein harvest/Aortic valve replacement (27 mm bioprosthesis)/Ascending aortic replacement (30 mm straight graft (STJ to distal ascending
aorta)/Left atrial maze, open surgical [posterior wall isolation with left atrial appendage line]/LAAE [35 mm clip], by Dr. Webster, 09/28/24, pod#1
-Severe aortic valve stenosis with functional bicuspid morphology fused left and right coronary cusp with a moderate degree of aortic valve insufficiency
-Ascending aortic aneurysm measuring greater than 4.5 cm
-Mild pulmonary hypertension
-Mild TR
-Mild MR
-Mild pulm HTN
-2v CAD
-LVEF 60% per intraop DEBI
-A-fib
-GERD
-Seasonal allergies
-Diverticulosis
-Internal hemorrhoids
-Colon polyps
-S/P Colonoscopy with polypectomy, 07/03/22
-S/p Robotic Inguinal Herniorrhaphy, 06/23/2017
-Acute postop blood loss/Anemia (stable without blood transfusion)
-Acute postop atelectasis
-Acute postop hypovolemia with subsequent hypervolemia
-Acute postop probable acute pericarditis (+rub, c/o stabbing pain after OOB this AM), will give 15 mg IV Toradol x 3 doses
Discussed patient care with: Cardiology, Nursing, Respiratory Therapy, Pharmacy and Care Team
Subjective
Procedure
S/p Standard sternotomy/CABG x 2 (In situ MORRISON to LAD, Ao to RSVG to daughter branch of OM 1)/ R LE Endoscopic vein harvest/Aortic valve replacement (27 mm bioprosthesis)/Ascending aortic replacement (30 mm straight graft (STJ to distal ascending
aorta)/Left atrial maze, open surgical [posterior wall isolation with left atrial appendage line]/LAAE [35 mm clip], by Dr. Webster, 09/28/24
-
Date of Service: September 29, 2024
Pt c/o incisional pain, otherwise feels well
Objective Data
-
Lab Results
09/29/24 03:10
09/29/24 03:10
PT 18.7 Sec (11.4-14.6) H 09/28/24 12:37
INR 1.54 09/28/24 12:37
APTT 40.2 Sec (23.4-35.0) H 09/28/24 12:37
Vital Signs
Vital Signs
Temp Pulse Resp BP Pulse Ox
98.1 F 70 13 108/74 99
09/29/24 03:00 09/29/24 03:15 09/29/24 03:15 09/29/24 03:00 09/29/24 03:15
CT Intake/Output/Weight
09/28/24 09/28/24 09/29/24
06:59 18:59 06:59
Intake Total 929.9 / 1245.3 315.4 / 1245.3
Output Total 540 / 1010 470 / 1010
Balance 389.9 / 235.3 -154.6 / 235.3
SaO2: 99 (2L)
Physical Exam
-
General: Awake, Oriented and AOx3
Cardiovascular: Regular rate & rhythm, No Murmurs, Rub (likely friction rub from chest tubes) and No Gallop
Respiratory: Decreased Breath Sounds (at bases, otherwise clear)
Sternum: Stable
Incision: Clean, Dry, Intact and Dressing Intact
Extremities: Other (+trace edema)
Data Reviewed
-
Lab Results: Results Reviewed
Medications: Active Meds Reviewed
Chest X-Ray: Report Reviewed and Image Reviewed
ECG: Report Reviewed and Image Reviewed
[2024-09-29 04:04] LABS: Glucose - Point of Care 96 mg/dl (70-99)
[2024-09-29 04:48] LABS: Glucose - Point of Care 114 mg/dl (70-99)
[2024-09-29] MEDS: ANCEF 5 IV ×2 (04:59→12:40)
[2024-09-29] MEDS: TYLENOL 1000 MG PO ×3 (06:00→21:39)
[2024-09-29 06:13] LABS: Glucose - Point of Care 92 mg/dl (70-99)
--- NOTE | 2024-09-29 06:18 | PTCARENOTE ---
Levi gee/danii'marlen, Oksana gee/danii'marlen
[2024-09-29] MEDS: TORADOL 15 MG IV ×3 (06:35→18:31)
[2024-09-29 08:01] LABS: Glucose - Point of Care 100 mg/dl (70-99)
--- NOTE | 2024-09-29 08:04 | W.PN.INTV ---
Today's Communication / Plan
Recommendations
Doing well post extubation, stable on RA
Ambulating in hallways, no issues
Transitioning off insulin protocol to SQ
Transfer to tele, we will sign off upon transfer
Assessment
-
Patient is a 68-year-old male with previous history of GERD, seasonal allergies, A-fib, MR presenting for elective severe aortic valve stenosis that was well-known. Underwent coronary bypass grafting x 2 with surgical aortic valve replacement
without complications. He is postoperatively transferred to CVICU for further management.
Severe s/p AVR, CAD s/p CAB x 2 09/28/24
Perioperative mechanical ventilation
Mild postoperative anemia
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
Mitral regurgitation
GERD
Seasonal allergies
Colon polyps
A-fib
Inguinal hernia repair with mesh 2017
Plan
S/p AVR/CAB POD #1
Off pressors per protocol
ECHO reviewed with normal function, mild VHD, mild PH noted
PA catheter readings reviewed
Management of chest tubes per primary service
Pain control
RASS goal of 0 to -1
Intubated for procedure, extubated and doing well
ABG(s) reviewed/adequate
CXR with stable postop changes
Maintain supplement oxygen as needed
No prior history of pulmonary disease, currently on RA
No Prior PFTs for review
Can add nebulizers if needed
Aspiration precautions
Encouraged incentive spirometry, OOB/ambulation/early mobility
Advance diet as tolerated following extubation
GI prophylaxis if indicated for mechanical ventilation >48 hours
Monitor critical I/O's
Gandhi/chest tube output
Hb/platelets postoperatively stable
Trend CBC for now
Can transfuse if indicated for Hb <7, plt <50 in surgical patients
DVT prophylaxis including SCDs
Insulin protocol initiated-transitioning to off
Transition to SQ as indicated per DM SERVER SOFTWARE ENGINEER
Diagnostic Data
Chest X-Ray: 09/28/24- Postoperative changes with appropriate positioning of support lines and tubes. No pneumothorax.
CT Scan: CTA 09/03/24- Chest: Fusiform aneurysmal dilatation of the ascending thoracic aorta measuring up to 4.6 cm. Mild to moderate coronary artery calcifications. No pulmonary nodules, areas of airspace disease, pleural effusions, pericardial
effusions or enlarged lymph nodes in the thorax. Origins of the great vessels from the aortic arch are patent.
Echo: DEBI 09/28/24- Overall LVEF is approximately 60% with no RWMA. Normal left ventricular systolic function. Moderate concentric left ventricular hypertrophy. Mildly enlarged right ventricular size.
Moderately dilated right atrium. Coronary sinus is dilated. Moderate tricuspid regurgitation. Estimated pulmonary artery systolic pressure of 40-45 mmHg. Mild mitral regurgitation. MR jet is central due to mild annular dilation. Severe aortic
stenosis. Moderate aortic insufficiency. AV is functionally bicuspid with RCC/LCC fusion. NEELIMA calculates to 0.9 cm2 by continuity equation. Mid ascending aorta is dilated measuring 4.4 cm at the level of the RPA. Mobile atheroma noted in the
distal arch. Mild sessile atheroma seen in the descending aorta.
PFT's:
Reports and relevant images were personally reviewed.
-----
Critical care time 32 mins -- this includes review of history, physical exam, medications, hemodynamic/ventilator parameters, laboratory data, imaging and discussion with house staff, pharmacy, respiratory therapy, pipe bowls paint trimmer, and nursing.
Subjective Dataa
Subjective Data
Date of Service:
Date of Service: September 29, 2024
Chief Complaint: Associate Dean Of Women Follow Up
Subjective:
Doing well post extubation, stable now on RA
No significant pain, able to ambulate well
Objective Data
Data Reviewed
Vital Signs / I&O / Oxygen:
Vital Signs
Temp Pulse Resp BP Pulse Ox
98.4 F 72 18 119/80 98
09/29/24 08:00 09/29/24 08:00 09/29/24 08:00 09/29/24 08:00 09/29/24 08:00
Intake and Output
09/28/24 09/29/24 09/30/24
06:59 06:59 06:59
Intake Total 1287.4 / 1287.4 10.4 / 10.4
Output Total 1140 / 1140 5 / 5
Balance 147.4 / 147.4 5.4 / 5.4
SaO2 [CPAP/PSV] 100
SaO2 [SIMV] 98
SaO2 98
Nasal Cannula flow liters per 2
minute
Physical Exam
General: Comfortable and Other (NAD)
HEENT: Normocephalic, Anicteric and Moist Mucous Membranes
Cardiovascular: S1-S2 and Regular Rhythm
Respiratory: Clear
GI: Soft, Non Distended and Non Tender
Neurology: Awake, Alert, Oriented and No Motor Deficits
Skin: Warm, Dry and Good Color
Labs/Micro/Reports
Lab Data
09/29/24 03:10
09/29/24 03:10
Laboratory Results
09/28/24 09/28/24
12:37 15:40
PT 18.7 H
INR 1.54
APTT 40.2 H
pH 7.41 7.39
pCO2 42 42
pO2 158 H 171 H
HCO3 26.6 25.4
O2 Delivery Level
[2024-09-29] MEDS: BACTROBAN 2% OINTMENT 1 APPLIC NASAL ×2 (08:06→20:21)
[2024-09-29] MEDS: PLAVIX 75 MG PO (08:06)
[2024-09-29] MEDS: LOW STRENGTH ASPIRIN 81 MG PO (08:06)
[2024-09-29] MEDS: PROTONIX 40 MG PO (08:07)
[2024-09-29] MEDS: PACERONE 200 MG PO ×3 (08:07→21:39)
[2024-09-29] MEDS: TOPROL XL 12.5 MG PO (08:07)
[2024-09-29] MEDS: LIPITOR 40 MG PO (08:07)
[2024-09-29] MEDS: SENOKOT-S 1 TABLET PO ×2 (08:07→20:21)
[2024-09-29] MEDS: MAGNESIUM OXIDE 500 MG PO ×2 (08:07→20:21)
[2024-09-29] MEDS: ROXICODONE 5 MG PO ×3 (08:08→21:39)
[2024-09-29] MEDS: NEURONTIN 100 MG PO ×3 (08:08→21:38)
--- NOTE | 2024-09-29 08:56 | PTCARENOTE ---
Received pt from warehouse shift supervisor RN; pt AAOx3 and resting comfortably in chair; NSR on monitor and VSS; A/V wires set to DDD 40/2/0.5, 40/2/2 and no pacing noted; + rub; RIJ Cordis and PIV x1 patient; Insulin infusing per glycemic protocol see flow
sheet for detials;;Lungs diminished; IS to 1250; CTX3 to -20 wall suction no air leak and no crepitus noted; hypoactive bowel sounds; pt DT by 1230; palpable pulses throughout; no edema noted; all surgical sites C/D/I; see nursing documentation for
further details.
[2024-09-29 10:10] LABS: Glucose - Point of Care 134 mg/dl (70-99)
--- NOTE | 2024-09-29 10:42 | W.PN.ANS.POP ---
Anesthesia Post Operative
- Anesthesia Post Op Note
Vital Signs Stable-See Nursing Note: Yes
Airway Patent: Yes
Adequate Pain Control: Yes
Change in Mental Status: No
Current Postoperative Nausea & Vomiting: No
Anesthesia Complications: No
General Anesthetic Recall: No
Unplanned Admission: No
Post Op Hydration Adequate: Yes
- -
Pt awake and alert. OOB to chair with no anesthesia related c/o at time of post op visit.
--- NOTE | 2024-09-29 11:29 | CM ---
Reviewed chart. Met with and Mrs. St to review discharge plans. He states he is feeling well. He states he ambulated in the hallway today. He states prior to admission he resides with his spouse in a one story home with two steps to
enter. He states prior to admission he was independent with ambulation and adls. He states he does not have any DME in the home. He states he has a prescription plan and [facility]. He states his spouse will be home to assist in his care if
needed when he goes home. We reviewed a home visit by the Transitional Care Nurse. He is agreeable to a home visit. Medical work-up iin progress. The discharge plan is to is ti return home with his spouse and a home visit by the Transitional
Care Nurse when medically stable.
--- NOTE | 2024-09-29 11:35 | PTCARENOTE ---
Pt had 10 beat run of V tach, updated CVNP and awaiting medication orders.
[2024-09-29] MEDS: NSS IV (11:55)
[2024-09-29] MEDS: CORDARONE 103 MG IV ×2 (11:55→22:10)
[2024-09-29 11:59] LABS: Glucose - Point of Care 129 mg/dl (70-99)
[2024-09-29 13:13] LABS: Glucose - Point of Care 196 mg/dl (70-99)
--- NOTE | 2024-09-29 13:13 | PTCARENOTE ---
Assessment unchanged; NSR on monitor and VSS; pt ambulating hallway with RN; family at bedside.
--- NOTE | 2024-09-29 13:19 | W.PN.CARDCBS ---
Addendum entered and electronically signed by Edward Alonso MD 09/29/24 13:45:
patient seen and examined
agree with BHARAT Lee's notes and assessment
agree with BHARAT Lee's plan
exam:
heent ncat
jvp 6
cor regular
lungs ctab bilaterally but diminished
tubes noted
sternum intact
sr on tele
abd soft nt nd
trace ext edema
Assessment:
Severe aortic stenosis, bicuspid valve
Multivessel CAD
Ascending aortic aneurysm
Status post surgical bioprosthetic AVR, ascending aorta replacement, CABG x 2 (in situ MORRISON to LAD, ao to RSVG to daughter branch of OM1), maze, CAROLINE clip 09/28/2024
Paroxysmal atrial fibrillation
Chronic anticoagulation with Eliquis
GERD
Hyperlipidemia
Acute postoperative anemia
ECHO 02/12/2024: EF 55 to 60%, moderate concentric LVH, moderate MR, bicuspid aortic valve with severe with peak/mean gradients 82/47 mmHg, NEELIMA 0.7 cm�, mild TR, PAP 25 to 30 mmHg
Plan:
-Status post surgical bioprosthetic AVR, ascending aorta replacement, CABG x 2 (in situ MORRISON to LAD, ao to RSVG to daughter branch of OM1), maze, CAROLINE clip 09/28/2024
-lines and tubes out as you are
-Appreciate excellent CT surgical care
-In sinus rhythm with 1 10-beat run of what appears to be atrial tachycardia. Was given amiodarone bolus
-EKG this morning with evidence of likely pericarditis. Patient reports pain well-controlled. QTc improved compared to EKG 09/28
-Eventually resume anticoagulation when okay per surgery, was on eliquis preop. For now continue aspirin, Plavix
-Continue postoperative care
-Encouraged out of bed/IS
-Discussed with nursing. Discussed with patient and family at bedside
Original Note:
Today's Communication / Plan
-
Continue postoperative care
Follow EKG and telemetry
Eventual anticoagulation
Impression / Plan
-
Primary Operations Support Specialist: Dr. LILIAN Grossman
Assessment:
Severe aortic stenosis, bicuspid valve
Multivessel CAD
Ascending aortic aneurysm
Status post surgical bioprosthetic AVR, ascending aorta replacement, CABG x 2 (in situ MORRISON to LAD, ao to RSVG to daughter branch of OM1), maze, CAROLINE clip 09/28/2024
Paroxysmal atrial fibrillation
Chronic anticoagulation with Eliquis
GERD
Hyperlipidemia
Acute postoperative anemia
ECHO 02/12/2024: EF 55 to 60%, moderate concentric LVH, moderate MR, bicuspid aortic valve with severe with peak/mean gradients 82/47 mmHg, NEELIMA 0.7 cm�, mild TR, PAP 25 to 30 mmHg
Plan:
-Status post surgical bioprosthetic AVR, ascending aorta replacement, CABG x 2 (in situ MORRISON to LAD, ao to RSVG to daughter branch of OM1), maze, CAROLINE clip 09/28/2024
-Feeling well overall. Reports breathing improved after a chest tube removed
-Blood pressure stable
-In sinus rhythm with 1 10-beat run of what appears to be atrial tachycardia. Was given amiodarone bolus
-EKG this morning with evidence of likely pericarditis. Patient reports pain well-controlled. QTc improved compared to EKG 09/28
-Eventually resume anticoagulation when okay per surgery, was on eliquis preop. For now continue aspirin, Plavix
-Continue postoperative care
-Encouraged out of bed/IS
-Discussed with nursing. Discussed with patient and family at bedside
Progress Note - Operations Support Specialist
Subjective
Date of Service: September 29, 2024
Overall reports feeling well
Objective
Labs:
09/29/24 03:10
09/29/24 03:10
Labs
Hgb 10.8 g/dL (13.0-18.0) L 09/29/24 03:10
Hct 31.6 % (39.0-52.0) L 09/29/24 03:10
Plt Count 169 10^3/uL (130-400) 09/29/24 03:10
PT 18.7 Sec (11.4-14.6) H 09/28/24 12:37
INR 1.54 09/28/24 12:37
APTT 40.2 Sec (23.4-35.0) H 09/28/24 12:37
Sodium 139 mmol/L (135-145) 09/29/24 03:10
Potassium 4.5 mmol/L (3.5-5.1) 09/29/24 03:10
BUN 25 mg/dl (9-20) H 09/29/24 03:10
Creatinine 0.8 mg/dL (0.7-1.3) 09/29/24 03:10
Glucose 101 mg/dl (70-99) H 09/29/24 03:10
Vital Signs and I&O:
Vital Signs
Temp Pulse Resp BP Pulse Ox
98 F 70 20 106/61 98
09/29/24 12:00 09/29/24 13:00 09/29/24 13:00 09/29/24 13:00 09/29/24 13:00
Vital Signs
Temp Pulse Resp BP Pulse Ox
98 F 70 20 106/61 98
09/29/24 12:00 09/29/24 13:00 09/29/24 13:00 09/29/24 13:00 09/29/24 13:00
Intake & Output
09/27/24 09/28/24 09/29/24 09/30/24
07:59 07:59 07:59 07:59
Intake Total 1287.4 / 1297.8 638.6 / 638.6
Output Total 1140 / 1165 95 / 95
Balance 147.4 / 132.8 543.6 / 543.6
Physical Exam
Physical Exam
GEN: No distress, awake, alert, oriented x3. Sitting in chair
HEENT: supple, anicteric, mmm, EOMI
LUNGS: CTA B/L, no wheezes/rales
CV: Reg, S1/S2, / syst LSB
EXT: No cyanosis, clubbing, edema
NEURO: Gross non-focal
SKIN: Warm, pink, dry. No rash. Sternotomy incision clean dry and intact. Chest tube in place
[2024-09-29] MEDS: COLCHICINE 0.3 MG PO (14:14)
[2024-09-29] MEDS: FERRLECIT 110 MG IV (14:15)
[2024-09-29 14:26] LABS: Glucose - Point of Care 180 mg/dl (70-99)
[2024-09-29 15:19] LABS: Glucose - Point of Care 155 mg/dl (70-99)
--- NOTE | 2024-09-29 17:23 | PTCARENOTE ---
NSR on monitor and VSS; assessment unchanged and pt resting comfortably in chair with family at bedside.
--- NOTE | 2024-09-29 20:00 | PTCARENOTE ---
assumed care of pt from previous RN. pt A&Ox4, resting in chair at time of assessment. SR on tele-monitor. pericardial friction rub heard on auscultation. temp epicardial A/V wires insulated. POX 97% on RA. CTx2 (mediastinal) to -20cm wall suction,
draining serosanguineous drainage. abd s/n, +BS. voiding melinda colored urine in urinal. all surgical sites stable, CDI. R IJ cordis w/ KVO. PIV intact. see worklist for complete nursing assessment, interventions, VS, and I&Os.
[2024-09-29] MEDS: TOPROL XL PO (20:22)
[2024-09-29] MEDS: CORDARONE 518 MG IV (22:17)
[2024-09-30] VITALS (16 sets, daily range): BP systolic 86–135; BP diastolic 63–92; BMI 26.5
--- NOTE | 2024-09-30 | PTCARENOTE ---
assessment remains unchanged. A fib on tele-monitor. VSS. amio gtt infusing per order.
[2024-09-30] MEDS: CORDARONE 103 MG IV (02:17)
[2024-09-30 04:14] LABS: Hematocrit 30.6 % (39.0-52.0); Hemoglobin 10.6 g/dL (13.0-18.0); Mean Corp Hgb Conc. 34.6 g/dL (33.0-37.0); Mean Corpuscular Hgb 31.8 pg (27.0-31.0); Mean Corpuscular Volume 91.9 fL (80.0-94.0); Mean Platelet Volume 10.1 fL (7.4-10.4); Platelet Count 175 10^3/uL (130-400); Red Blood Cell Count 3.33 10^6/uL (4.70-6.10); Red Cell Dist. Width 12.3 % (11.5-14.5); White Blood Cell Count 11.4 10^3/uL (4.8-10.8)
--- NOTE | 2024-09-30 04:15 | PTCARENOTE ---
no acute changes. VSS. pt remains in a fib on tele-monitor. AM labs collected and sent.
[2024-09-30 04:51] LABS: Blood Urea Nitrogen 46 mg/dl (9-20); Calcium 7.8 mg/dl (8.4-10.2); Carbon Dioxide 25 mmol/L (22-30); Chloride 97 mmol/L (98-107); Estimated Creatinine Clearance 53 ml/min; Glucose 124 mg/dl (70-99); Magnesium 2.9 mg/dl (1.6-2.3); Potassium 4.4 mmol/L (3.5-5.1); Sodium 130 mmol/L (135-145); eGFR > 60.00
[2024-09-30] MEDS: TYLENOL 1000 MG PO ×3 (06:33→22:10)
--- NOTE | 2024-09-30 07:57 | W.PN.CT ---
Today's Communication / Plan
-
-pod #2
-went into a-fib 110s-120s at 9:40 pm, felt palpitations - gave Amio bolus x2 and drip. Converted to nsr at 6am
-follow Cr - 1.2 today (0.8 prior)
-low BP this am 90s- follow, ? hold BB
-CT output: 2 meds 85/210 in 12/24 hrs
-encourage IS/OOB
Assessment / Plan
-
Assessment:
-S/p Standard sternotomy/CABG x 2 (In situ MORRISON to LAD, Ao to RSVG to daughter branch of OM 1)/ R LE Endoscopic vein harvest/Aortic valve replacement (27 mm bioprosthesis)/Ascending aortic replacement (30 mm straight graft (STJ to distal ascending
aorta)/Left atrial maze, open surgical [posterior wall isolation with left atrial appendage line]/LAAE [35 mm clip], by Dr. Webster, 09/28/24, pod#2
-Severe aortic valve stenosis with functional bicuspid morphology fused left and right coronary cusp with a moderate degree of aortic valve insufficiency
-Ascending aortic aneurysm measuring greater than 4.5 cm
-Mild pulmonary hypertension
-Mild TR
-Mild MR
-Mild pulm HTN
-2v CAD
-LVEF 60% per intraop DEBI
-A-fib
-GERD
-Seasonal allergies
-Diverticulosis
-Internal hemorrhoids
-Colon polyps
-S/P Colonoscopy with polypectomy, 07/03/22
-S/p Robotic Inguinal Herniorrhaphy, 06/23/2017
-Acute postop blood loss/Anemia (stable without blood transfusion)
-Acute postop atelectasis
-Acute postop hypovolemia with subsequent hypervolemia
-Acute postop probable acute pericarditis (+rub, c/o stabbing pain after OOB this AM), will give 15 mg IV Toradol x 3 doses.
-GAYE
Discussed patient care with: Nursing and Care Team
Subjective
Procedure
S/p Standard sternotomy/CABG x 2 (In situ MORRISON to LAD, Ao to RSVG to daughter branch of OM 1)/ R LE Endoscopic vein harvest/Aortic valve replacement (27 mm bioprosthesis)/Ascending aortic replacement (30 mm straight graft (STJ to distal ascending
aorta)/Left atrial maze, open surgical [posterior wall isolation with left atrial appendage line]/LAAE [35 mm clip], by Dr. Webster, 09/28/24
-
Date of Service: September 30, 2024
Objective Data
-
Lab Results
09/30/24 04:03
PT 18.7 Sec (11.4-14.6) H 09/28/24 12:37
INR 1.54 09/28/24 12:37
APTT 40.2 Sec (23.4-35.0) H 09/28/24 12:37
Vital Signs
Vital Signs
Temp Pulse Resp BP Pulse Ox
97.7 F 64 18 93/69 96
09/30/24 04:00 09/30/24 06:31 09/30/24 04:00 09/30/24 06:31 09/30/24 04:01
CT Intake/Output/Weight
09/29/24 09/30/24 09/30/24
18:59 06:59 18:59
Intake Total 1051.6 / 1571.4 519.8 / 1571.4
Output Total 230 / 990 760 / 990
Balance 821.6 / 581.4 -240.2 / 581.4
SaO2: 96
Physical Exam
-
General: Awake and AOx3
Cardiovascular: Irregular rate & rhythm, No Murmurs and No Rub
Respiratory: Decreased Breath Sounds
Sternum: Stable
Incision: Clean, Dry and Intact
Extremities: Other (trace edema b/l)
Data Reviewed
-
Lab Results: Results Reviewed
Medications: Active Meds Reviewed
Chest X-Ray: Report Reviewed and Image Reviewed
ECG: Report Reviewed and Image Reviewed
[2024-09-30] MEDS: NEURONTIN 100 MG PO ×3 (08:51→22:10)
[2024-09-30] MEDS: PLAVIX 75 MG PO (08:51)
[2024-09-30] MEDS: LOW STRENGTH ASPIRIN 81 MG PO (08:51)
[2024-09-30] MEDS: COLCHICINE 0.3 MG PO (08:51)
[2024-09-30] MEDS: BACTROBAN 2% OINTMENT 1 APPLIC NASAL ×2 (08:51→20:26)
[2024-09-30] MEDS: MAGNESIUM OXIDE 500 MG PO (08:51)
[2024-09-30] MEDS: PROTONIX 40 MG PO (08:51)
[2024-09-30] MEDS: PACERONE 200 MG PO ×3 (08:51→22:12)
[2024-09-30] MEDS: LIPITOR 40 MG PO (08:51)
[2024-09-30] MEDS: LASIX 40 MG IV ×2 (08:52→16:24)
[2024-09-30] MEDS: SENOKOT-S 1 TABLET PO ×2 (08:52→20:26)
--- NOTE | 2024-09-30 09:03 | PTCARENOTE ---
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
bowel sounds and pt voiding yellow urine; palpable pulses throughout; no edema noted; all surgical sites C/D/I; see nursing documentation for further details.
--- NOTE | 2024-09-30 09:47 | W.PN.CARDCBS ---
Addendum entered and electronically signed by Vega Grossman MD 09/30/24 16:06:
68-year-old man with bicuspid aortic stenosis, PAF, aneurysm of ascending aorta and multivessel CAD, status post CABG September 28 (MORRISON to LAD, SVG to daughter of OM1),, replacement of ascending aorta with bioprosthetic aortic valve (27 mm) left
atrial appendage clip and maze
A-fib last night and into this morning, now in sinus rhythm on amiodarone since 6 AM. Creatinine is up slightly but now stable, 1.1
PMH: GERD, hyperlipidemia Meds reviewed
126/81, pulse 68, resp rate 18, BP had been in 90s, patient sitting in chair, looks comfortable, head neck exam unremarkable, chest tube still in place, lungs are clear, regular rate and rhythm, no obvious murmurs or rubs,
Chest x-ray tubes in place, cardiomegaly,
ECG: Sinus rhythm, mild diffuse ST elevation
White count 11.4, hemoglobin 10.6, sodium 129 BUN/creatinine 42 and 1.1
Impression: See below
Plan:
Overall doing well postop day 2, with some A-fib but now in sinus rhythm on amiodarone
To resume Eliquis per surgery. Patient now on aspirin, Plavix and colchicine.
Still on IV Lasix.
Original Note:
Today's Communication / Plan
-
continue post op care
follow rhythm
resume OAC when ok per surgery
Impression / Plan
-
Primary Zone Manager: Dr. LILIAN Grossman
Assessment:
Severe aortic stenosis, bicuspid valve
Multivessel CAD
Ascending aortic aneurysm
Status post surgical bioprosthetic AVR, ascending aorta replacement, CABG x 2 (in situ MORRISON to LAD, ao to RSVG to daughter branch of OM1), maze, CAROLINE clip 09/28/2024
Paroxysmal atrial fibrillation
Chronic anticoagulation with Eliquis
GERD
Hyperlipidemia
Acute postoperative anemia
ECHO 02/12/2024: EF 55 to 60%, moderate concentric LVH, moderate MR, bicuspid aortic valve with severe with peak/mean gradients 82/47 mmHg, NEELIMA 0.7 cm�, mild TR, PAP 25 to 30 mmHg
Plan:
-Status post surgical bioprosthetic AVR, ascending aorta replacement, CABG x 2 (in situ MORRISON to LAD, ao to RSVG to daughter branch of OM1), maze, CAROLINE clip 09/28/2024
-had symptomatic post op afib from ~2130 to 0600 overnight on review of tele. received amio bolus x2 and currently on IV amio @ 0.5 and po amio. in SR currently. does have history of PAF preop but was asymptomatic in past.
-resume OAC when ok per surgery
-would likely plan to DC on po amio
-Continue postoperative care
-Encouraged out of bed/IS
-Discussed with nursing. Discussed extensively with patient and family at bedside
Progress Note - Zone Manager
Subjective
Date of Service: September 30, 2024
currently feeling well. did feel heart pounding with afib overnight
Objective
Labs:
09/30/24 04:03
Labs
Hgb 10.6 g/dL (13.0-18.0) L 09/30/24 04:03
Hct 30.6 % (39.0-52.0) L 09/30/24 04:03
Plt Count 175 10^3/uL (130-400) 09/30/24 04:03
PT 18.7 Sec (11.4-14.6) H 09/28/24 12:37
INR 1.54 09/28/24 12:37
APTT 40.2 Sec (23.4-35.0) H 09/28/24 12:37
Sodium 130 mmol/L (135-145) L D 09/30/24 04:03
Potassium 4.4 mmol/L (3.5-5.1) 09/30/24 04:03
BUN 46 mg/dl (9-20) H 09/30/24 04:03
Creatinine 1.2 mg/dL (0.7-1.3) 09/30/24 04:03
Glucose 124 mg/dl (70-99) H 09/30/24 04:03
Vital Signs and I&O:
Vital Signs
Temp Pulse Resp BP Pulse Ox
97.4 F 65 18 95/64 97
09/30/24 08:00 09/30/24 08:00 09/30/24 08:00 09/30/24 07:59 09/30/24 09:22
Vital Signs
Temp Pulse Resp BP Pulse Ox
97.4 F 65 18 95/64 97
09/30/24 08:00 09/30/24 08:00 09/30/24 08:00 09/30/24 07:59 09/30/24 09:22
Intake & Output
09/28/24 09/29/24 09/30/24 10/01/24
07:59 07:59 07:59 07:59
Intake Total 1287.4 / 1297.8 1571.4 / 1571.4 40 / 40
Output Total 1140 / 1165 990 / 990
Balance 147.4 / 132.8 581.4 / 581.4
Physical Exam
Physical Exam
GEN: No distress, awake, alert, oriented x3. Sitting in chair
HEENT: supple, anicteric, mmm, EOMI
LUNGS: CTA B/L, no wheezes/rales
CV: Reg, S1/S2, 1/6 syst LSB
EXT: No cyanosis, clubbing, edema
NEURO: Gross non-focal
SKIN: Warm, pink, dry. No rash. Sternotomy incision clean dry and intact.
[2024-09-30] MEDS: TOPROL XL 12.5 MG PO ×2 (11:19→22:10)
--- NOTE | 2024-09-30 11:31 | PTCARENOTE ---
Mediastinal CT x2 removed per order; pt ambulated hallway with RN and pt resting comfortably in chair with at bedside; NSR on monitor and VSS.
[2024-09-30] MEDS: FERRLECIT 110 MG IV (13:34)
[2024-09-30] MEDS: NSS 500 IV (13:36)
--- NOTE | 2024-09-30 14:37 | CM ---
Reviewed chart. Met with Mr. St to review discharge plans. He states he is feeling okay. He ambulated in the hallway today. We reviewed a home visit by the Transitional Care Nurse. He is agreeable to a home visit. Prior to admission he
resides with his spouse in a one stroy home with two steps to enter. Prior to admission he was independent with ambulation and adls. He [place] not have any DME in the home. He has a prescription plan and uses [facility]. His spouse will be home to
assist in his care if needed. Medical work-up in progress. The discharge plan is to return home with his spouse and a home visit by the Transitional Care Nurse when medically stable.
[2024-09-30 15:17] LABS: Blood Urea Nitrogen 42 mg/dl (9-20); Calcium 7.8 mg/dl (8.4-10.2); Carbon Dioxide 24 mmol/L (22-30); Chloride 95 mmol/L (98-107); Estimated Creatinine Clearance 58 ml/min; Glucose 174 mg/dl (70-99); Potassium 4.6 mmol/L (3.5-5.1); Sodium 129 mmol/L (135-145); eGFR > 60.00
[2024-09-30] MEDS: ROXICODONE 5 MG PO (16:24)
--- NOTE | 2024-09-30 16:41 | PTCARENOTE ---
Pt ambulating in hallway with RN; NSR on monitor and VSS; assessment unchanged.
[2024-09-30] MEDS: MAGNESIUM OXIDE PO (20:45)
[2024-10-01] VITALS (10 sets, daily range): BP systolic 95–128; BP diastolic 55–87; PULSE 66; O2SAT 97; BMI 26.3
[2024-10-01 05:40] LABS: Hematocrit 28.7 % (39.0-52.0); Hemoglobin 9.7 g/dL (13.0-18.0); Mean Corp Hgb Conc. 33.8 g/dL (33.0-37.0); Mean Corpuscular Volume 91.7 fL (80.0-94.0); Mean Platelet Volume 10.4 fL (7.4-10.4); Platelet Count 150 10^3/uL (130-400); Red Blood Cell Count 3.13 10^6/uL (4.70-6.10); Red Cell Dist. Width 12.4 % (11.5-14.5); White Blood Cell Count 8.5 10^3/uL (4.8-10.8)
[2024-10-01] MEDS: TYLENOL 1000 MG PO ×2 (05:54→14:50)
[2024-10-01] MEDS: ZOFRAN 4 MG IV (05:56)
[2024-10-01 06:03] LABS: Blood Urea Nitrogen 33 mg/dl (9-20); Calcium 6.9 mg/dl (8.4-10.2); Carbon Dioxide 23 mmol/L (22-30); Chloride 102 mmol/L (98-107); Estimated Creatinine Clearance 71 ml/min; Glucose 100 mg/dl (70-99); Magnesium 2.3 mg/dl (1.6-2.3); Potassium 3.8 mmol/L (3.5-5.1); Sodium 131 mmol/L (135-145); eGFR > 60.00
--- NOTE | 2024-10-01 07:23 | W.PN.CT ---
Today's Communication / Plan
-
-pod #3
-no issues overnight
-diuresed well with 40 iv Lasix on 09/30 (UO 0339/4231)- continue
-remains in nsr
-replete K
-encourage IS, OOB
Assessment / Plan
-
Assessment:
-S/p Standard sternotomy/CABG x 2 (In situ MORRISON to LAD, Ao to RSVG to daughter branch of OM 1)/ R LE Endoscopic vein harvest/Aortic valve replacement (27 mm bioprosthesis)/Ascending aortic replacement (30 mm straight graft (STJ to distal ascending
aorta)/Left atrial maze, open surgical [posterior wall isolation with left atrial appendage line]/LAAE [35 mm clip], by Dr. Webster, 09/28/24, pod#3
-Severe aortic valve stenosis with functional bicuspid morphology fused left and right coronary cusp with a moderate degree of aortic valve insufficiency
-Ascending aortic aneurysm measuring greater than 4.5 cm
-Mild pulmonary hypertension
-Mild TR
-Mild MR
-Mild pulm HTN
-2v CAD
-LVEF 60% per intraop DEBI
-A-fib
-GERD
-Seasonal allergies
-Diverticulosis
-Internal hemorrhoids
-Colon polyps
-S/P Colonoscopy with polypectomy, 07/03/22
-S/p Robotic Inguinal Herniorrhaphy, 06/23/2017
-Acute postop blood loss/Anemia (stable without blood transfusion)
-Acute postop atelectasis
-Acute postop hypovolemia with subsequent hypervolemia
-Acute postop probable acute pericarditis (+rub, c/o stabbing pain after OOB this AM), will give 15 mg IV Toradol x 3 doses.
-GAYE
Discussed patient care with: Nursing and Care Team
Subjective
Procedure
S/p Standard sternotomy/CABG x 2 (In situ MORRISON to LAD, Ao to RSVG to daughter branch of OM 1)/ R LE Endoscopic vein harvest/Aortic valve replacement (27 mm bioprosthesis)/Ascending aortic replacement (30 mm straight graft (STJ to distal ascending
aorta)/Left atrial maze, open surgical [posterior wall isolation with left atrial appendage line]/LAAE [35 mm clip], by Dr. Webster, 09/28/24
-
Date of Service: October 01, 2024
Objective Data
-
Lab Results
10/01/24 05:04
10/01/24 05:04
PT 18.7 Sec (11.4-14.6) H 09/28/24 12:37
INR 1.54 09/28/24 12:37
APTT 40.2 Sec (23.4-35.0) H 09/28/24 12:37
Vital Signs
Vital Signs
Temp Pulse Resp BP Pulse Ox
97.5 F 61 18 110/71 98
10/01/24 04:00 10/01/24 04:04 10/01/24 04:00 10/01/24 04:04 10/01/24 04:04
CT Intake/Output/Weight
09/30/24 10/01/24 10/01/24
18:59 06:59 18:59
Intake Total 470.4 / 1204.0 733.6 / 1204.0
Output Total 2275 / 3395 1120 / 3395
Balance -1804.6 / -2191.0 -386.4 / -2191.0
SaO2: 98
Physical Exam
-
General: Awake and AOx3
Cardiovascular: Irregular rate & rhythm, No Murmurs and No Rub
Respiratory: Decreased Breath Sounds
Sternum: Stable
Incision: Clean, Dry and Intact
Extremities: Other (trace edema b/l)
Data Reviewed
-
Lab Results: Results Reviewed
Medications: Active Meds Reviewed
Chest X-Ray: Report Reviewed and Image Reviewed
ECG: Report Reviewed and Image Reviewed
--- NOTE | 2024-10-01 08:00 | PTCARENOTE ---
received patient from prev RN. resting in chair at time of assessment. SR. SAWANT. VSS. orders to d/c cordis and move to IVU. min assist to bathroom and walk around. IV lasix given. no complaints of pain at this time. Will continue to angel.
[2024-10-01] MEDS: CALCIUM GLUCONATE 1000 MG IV (09:06)
[2024-10-01] MEDS: LASIX 40 MG IV (09:08)
[2024-10-01] MEDS: COLCHICINE 0.3 MG PO (09:10)
[2024-10-01] MEDS: NEURONTIN 100 MG PO ×3 (09:10→22:58)
[2024-10-01] MEDS: PLAVIX 75 MG PO (09:11)
[2024-10-01] MEDS: SENOKOT-S 1 TABLET PO ×2 (09:11→20:39)
[2024-10-01] MEDS: PROTONIX 40 MG PO (09:11)
[2024-10-01] MEDS: KCL 40 MEQ PO (09:12)
[2024-10-01] MEDS: LIPITOR 40 MG PO (09:12)
[2024-10-01] MEDS: LOW STRENGTH ASPIRIN 81 MG PO (09:13)
[2024-10-01] MEDS: PACERONE 200 MG PO ×3 (09:13→22:58)
[2024-10-01] MEDS: BACTROBAN 2% OINTMENT 1 APPLIC NASAL ×2 (09:14→21:08)
[2024-10-01] MEDS: TOPROL XL 12.5 MG PO ×2 (09:14→20:39)
[2024-10-01] MEDS: NSS IV (09:15)
[2024-10-01] MEDS: LASIX IV ×2 (09:35→16:42)
--- NOTE | 2024-10-01 11:10 | PN.CDI ---
CDI
- -
CDI:
Physician Documentation Request
Admit Date: 09/28/24 04:[address] team,
Please review the following and provide your response in the progress notes.
Clinical Indicators:
Pt admitted for aortic root replacement, CABG x 2, and CAROLINE clip.
Laboratory Tests
09/30/24 09/30/24 10/01/24
04:03 13:55 05:04
Sodium 130 L D 129 L 131 L
Based on the above, could you clarify in the progress notes, the appropriate diagnosis, if significant, that supports the above abnormalities and additional evaluation, monitoring and/or treatment rendered:
Hyponatremia
Insignificant abnormal lab results
Other
Use of terms such as suspected, likely, concern for, or probable (associated with a specific diagnosis that is being evaluated, monitored, or treated as if it exists) are acceptable and can be coded in the inpatient setting, when documented at the
time of discharge.
Thank you,
Julia Ricks RN, BSN
CDI Specialist
[facility]
Please use your independent medical judgment in providing your response.
--- NOTE | 2024-10-01 13:47 | CM ---
Chart reviewed. Patient is independent of ADLS, lives with his in a 1 STH, 2 DRE, 0 DME. Plan is for the patient to return home with CT Transitional RN. CM to follow
[2024-10-01] MEDS: FERRLECIT 110 MG IV (14:49)
--- NOTE | 2024-10-01 18:36 | PTCARENOTE ---
Chest tube dsg changed, small amt serous drainage, cleansed around sites with CHG swab and new DSD applied.
[2024-10-01] MEDS: TYLENOL 650 MG PO (20:38)
[2024-10-01] MEDS: TYLENOL PO (23:15)
--- NOTE | 2024-10-01 23:59 | PTCARENOTE ---
Pt rec'd at change of shift in recliner chair. Pt independent with ambulation and ADL's. 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 resting in bed at present with call arevalo within reach.Sinus on telemetry
--- NOTE | 2024-10-02 04:00 | W.PN.CT ---
Addendum entered and electronically signed by JOSE Modoy 10/04/24 14:10:
CDI QUERY RESPONSE
Hyponatremia
Addendum entered and electronically signed by Beni Doss MD 10/02/24 09:44:
I saw and examined the patient.
The PA's note was reviewed and I agree with the note.
Comment:
Sergio St - POD#4 s/p CABG x 2/AVR/Ascending replacement/MAZE/ELAA
Doing well.
No issues overnight.
OK for D/C home today - Eliquis restarted
Original Note:
Today's Communication / Plan
-
-pod #4
-no issues overnight, maintained NSR
-follow Cr - 0.9 today (0.8 prior)
-SBP better overnight (95-128)
-encourage IS/OOB
-discharge planning
Assessment / Plan
-
Assessment:
-S/p Standard sternotomy/CABG x 2 (In situ MORRISON to LAD, Ao to RSVG to daughter branch of OM 1)/ R LE Endoscopic vein harvest/Aortic valve replacement (27 mm bioprosthesis)/Ascending aortic replacement (30 mm straight graft (STJ to distal ascending
aorta)/Left atrial maze, open surgical [posterior wall isolation with left atrial appendage line]/LAAE [35 mm clip], by Dr. Webster, 09/28/24, pod#4
-Severe aortic valve stenosis with functional bicuspid morphology fused left and right coronary cusp with a moderate degree of aortic valve insufficiency
-Ascending aortic aneurysm measuring greater than 4.5 cm
-Mild pulmonary hypertension
-Mild TR
-Mild MR
-Mild pulm HTN
-2v CAD
-LVEF 60% per intraop DEBI
-A-fib
-GERD
-Seasonal allergies
-Diverticulosis
-Internal hemorrhoids
-Colon polyps
-S/P Colonoscopy with polypectomy, 07/03/22
-S/p Robotic Inguinal Herniorrhaphy, 06/23/2017
-Acute postop blood loss/Anemia (stable without blood transfusion)
-Acute postop atelectasis
-Acute postop hypovolemia with subsequent hypervolemia
-Acute postop probable acute pericarditis (+rub, c/o stabbing pain after OOB this AM), will give 15 mg IV Toradol x 3 doses.
-GAYE
Subjective
Procedure
S/p Standard sternotomy/CABG x 2 (In situ MORRISON to LAD, Ao to RSVG to daughter branch of OM 1)/ R LE Endoscopic vein harvest/Aortic valve replacement (27 mm bioprosthesis)/Ascending aortic replacement (30 mm straight graft (STJ to distal ascending
aorta)/Left atrial maze, open surgical [posterior wall isolation with left atrial appendage line]/LAAE [35 mm clip], by Dr. Webster, 09/28/24
-
Date of Service: October 02, 2024
Objective Data
-
Lab Results
10/02/24 05:23
10/02/24 05:23
PT 18.7 Sec (11.4-14.6) H 09/28/24 12:37
INR 1.54 09/28/24 12:37
APTT 40.2 Sec (23.4-35.0) H 09/28/24 12:37
Vital Signs
Vital Signs
Temp Pulse Resp BP Pulse Ox
97.7 F 66 18 103/69 98
10/01/24 22:49 10/01/24 23:00 10/01/24 22:49 10/01/24 22:47 10/01/24 22:49
CT Intake/Output/Weight
10/01/24 10/01/24 10/02/24
06:59 18:59 06:59
Intake Total 733.6 / 1204.0 260 / 260
Output Total 1120 / 3395 1525 / 2025 500 / 2024
Balance -386.4 / -2191.0 -1265 / -1765 -500 / -1765
SaO2: 98
Physical Exam
-
General: Awake and AOx3
Cardiovascular: Regular rate & rhythm
Respiratory: Clear
Sternum: Stable
Incision: Clean, Dry and Intact
[2024-10-02 05:16] VITALS: BP 108/66
[2024-10-02 05:32] VITALS: BMI 26.0
[2024-10-02 05:44] LABS: Hematocrit 30.9 % (39.0-52.0); Hemoglobin 10.3 g/dL (13.0-18.0); Mean Corp Hgb Conc. 33.3 g/dL (33.0-37.0); Mean Corpuscular Hgb 31.1 pg (27.0-31.0); Mean Corpuscular Volume 93.4 fL (80.0-94.0); Mean Platelet Volume 10.1 fL (7.4-10.4); Platelet Count 160 10^3/uL (130-400); Red Blood Cell Count 3.31 10^6/uL (4.70-6.10); Red Cell Dist. Width 12.3 % (11.5-14.5); White Blood Cell Count 7.1 10^3/uL (4.8-10.8)
[2024-10-02 06:11] LABS: Blood Urea Nitrogen 28 mg/dl (9-20); Carbon Dioxide 26 mmol/L (22-30); Chloride 101 mmol/L (98-107); Estimated Creatinine Clearance 71 ml/min; Glucose 99 mg/dl (70-99); Magnesium 2.5 mg/dl (1.6-2.3); Potassium 4.7 mmol/L (3.5-5.1); Sodium 134 mmol/L (135-145); eGFR > 60.00
[2024-10-02] MEDS: TYLENOL 1000 MG PO ×2 (07:31→14:35)
[2024-10-02] MEDS: BACTROBAN 2% OINTMENT 1 APPLIC NASAL (07:36)
[2024-10-02 07:41] VITALS: BP 114/62
[2024-10-02] MEDS: COLCHICINE 0.3 MG PO (08:53)
[2024-10-02] MEDS: ELIQUIS 5 MG PO (08:55)
[2024-10-02] MEDS: PACERONE 200 MG PO (08:55)
[2024-10-02] MEDS: PROTONIX 40 MG PO (08:55)
[2024-10-02] MEDS: SENOKOT-S 1 TABLET PO (08:55)
[2024-10-02] MEDS: LIPITOR 40 MG PO (08:55)
[2024-10-02] MEDS: TOPROL XL 12.5 MG PO (08:56)
[2024-10-02] MEDS: LOW STRENGTH ASPIRIN 81 MG PO (08:56)
[2024-10-02] MEDS: NEURONTIN 100 MG PO (08:56)
[2024-10-02] MEDS: LASIX IV (09:15)
[2024-10-02] MEDS: NSS IV (09:51)
--- NOTE | 2024-10-02 10:19 | W.PN.CARDCBS ---
Today's Communication / Plan
-
Doing well. Remains in sinus rhythm. Continue aspirin and Eliquis.
Okay for discharge.
Continue aspirin, atorvastatin and metoprolol.
Impression / Plan
-
Primary Photographic Engineer: Dr. LILIAN Grossman
Assessment:
Severe aortic stenosis, bicuspid valve
Multivessel CAD
Ascending aortic aneurysm
Status post surgical bioprosthetic AVR, ascending aorta replacement, CABG x 2 (in situ MORRISON to LAD, ao to RSVG to daughter branch of OM1), maze, CAROLINE clip 09/28/2024
Paroxysmal atrial fibrillation
Chronic anticoagulation with Eliquis
GERD
Hyperlipidemia
Acute postoperative anemia
ECHO 02/12/2024: EF 55 to 60%, moderate concentric LVH, moderate MR, bicuspid aortic valve with severe with peak/mean gradients 82/47 mmHg, NEELIMA 0.7 cm�, mild TR, PAP 25 to 30 mmHg
Plan:
-Status post surgical bioprosthetic AVR, ascending aorta replacement, CABG x 2 (in situ MORRISON to LAD, ao to RSVG to daughter branch of OM1), maze, CAROLINE clip 09/28/2024
-No further A-fib. Remains in sinus rhythm. Continue amiodarone and Eliquis.
-Continue postoperative care
-Continue aspirin, atorvastatin, and metoprolol
-Encouraged out of bed/IS
-Discussed with nursing. Discussed extensively with patient and family at bedside
Progress Note - Photographic Engineer
Subjective
Date of Service: October 02, 2024
Feels well. Remains in sinus rhythm.
Objective
Labs:
10/02/24 05:23
10/02/24 05:23
Labs
Hgb 10.3 g/dL (13.0-18.0) L 10/02/24 05:23
Hct 30.9 % (39.0-52.0) L 10/02/24 05:23
Plt Count 160 10^3/uL (130-400) 10/02/24 05:23
PT 18.7 Sec (11.4-14.6) H 09/28/24 12:37
INR 1.54 09/28/24 12:37
APTT 40.2 Sec (23.4-35.0) H 09/28/24 12:37
Sodium 134 mmol/L (135-145) L 10/02/24 05:23
Potassium 4.7 mmol/L (3.5-5.1) 10/02/24 05:23
BUN 28 mg/dl (9-20) H 10/02/24 05:23
Creatinine 0.9 mg/dL (0.7-1.3) 10/02/24 05:23
Glucose 99 mg/dl (70-99) 10/02/24 05:23
Vital Signs and I&O:
Vital Signs
Temp Pulse Resp BP Pulse Ox
98.4 F 68 16 114/62 99
10/02/24 07:46 10/02/24 07:41 10/02/24 07:46 10/02/24 07:41 10/02/24 07:46
Vital Signs
Temp Pulse Resp BP Pulse Ox
98.4 F 68 16 114/62 99
10/02/24 07:46 10/02/24 07:41 10/02/24 07:46 10/02/24 07:41 10/02/24 07:46
Intake & Output
09/30/24 10/01/24 10/02/24 10/03/24
06:59 06:59 06:59 06:59
Intake Total 1571.4 / 1571.4 1204.0 / 1204.0 560 / 560
Output Total 990 / 990 3395 / 3395 2825 / 2825
Balance 581.4 / 581.4 -2191.0 / -2191.0 -2265 / -2265
Physical Exam
Physical Exam
GEN: No distress, awake, Ox3
HEENT: supple, anicteric, mmm
LUNGS: CTA, no wheezes/rales
CV: Reg, S1/S2, no rub
ABD: soft, BS+, NT/ND
EXT: No edema
NEURO: Gross non-focal
SKIN: sternotomy
[2024-10-02 12:54] VITALS: BP 109/61
[2024-10-02 12:55] VITALS: BP 110/62
--- NOTE | 2024-10-02 13:16 | W.DCSUMMARY ---
Discharge Summary
Discharge Data
Date of Admission: 09/28/24
Date of Discharge: 10/02/24
-
Pending Results: No
Hospital Course
Primary care physician: Vin Calvillo MD
Outpatient mainspring former: LILIAN Grossman MD
Inpatient consultants: Cardiology, Pulmonary Instensivists
Procedures:
1. Aortic valve replacement with 27 mm bioprosthetic valve, ascending aortic replacement with 30 mm Gelweave graft, encompass maze, exclusion of left atrial appendage with 35mm atrial clip, coronary artery bypass grafting x 2 with left internal
mammary artery to left anterior descending, saphenous vein graft to obtuse marginal 1, Dr. Webster
Primary Diagnosis:
1. Aortic stenosis secondary to bicuspid aortic valve with associated aortopathy
Secondary Diagnoses:
Coronary artery disease
Ascending aortic aneurysm
Expected acute postoperative blood loss anemia
Acute postoperative atelectasis
Acute postoperative pericarditis
Acute kidney injury
Mild pulmonary hypertension
Mild mitral regurgitation
Mild tricuspid regurgitation
Gastroesophageal reflux disease
Atrial fibrillation
Diverticulosis
HPI: The patient is a 68-year-old male who was seen by Dr. Webster in the office for evaluation of symptomatic aortic stenosis secondary to a bicuspid aortic valve. Patient underwent workup and was ultimately deemed a surgical candidate. Workup also
revealed an ascending aortic aneurysm of 4.5 cm. Patient was ultimately deemed a surgical candidate for biological aortic valve replacement ascending aorta replacement left atrial maze and left atrial appendage clip. He was ultimately planned for
elective surgical intervention.
Hospital course: Patient was admitted electively and underwent aortic valve replacement with a biologic valve, ascending aortic replacement maze and left atrial appendage exclusion by Dr. Zay Webster. This was performed on September 28, 2024. Please
refer to his separately dictated operative report for complete details. Postoperatively the patient progressed well. He was transferred to the intensive care unit on Precedex and insulin drips. He was extubated per usual protocol around 425 the
evening of surgery.
Postoperative day 1: Invasive monitoring lines removed. Left pleural chest tube was removed. Patient began ambulating.
Postoperative day 2: Patient was given IV Lasix. Mediastinal chest tubes were removed as well as pacing wires. Patient had an isolated episode of atrial fibrillation which was treated with usual protocol with conversion to sinus rhythm.
Colchicine was started for suspected pericarditis.
Postoperative day 3: Patient was again diuresed. He was started on Eliquis for anticoagulation. No other significant changes.
Postoperative day 4: Patient was cleared for discharge. He remained stable in sinus rhythm. He will continue Eliquis for the time being. No other new issues.
Discharge Plan
-
Patient Disposition: Home (Routine Discharge)
Discharge Diagnosis/Procedures: -Status post standard sternotomy/coronary artery bypass grafting x 2 (In situ left internal mammary artery to left anterior descending, aorta to reverse saphenous vein graft to daughter branch of obtuse marginal
1)/right lower extremity endoscopic vein harvest/Aortic valve replacement (27 mm bioprosthesis)/Ascending aortic replacement (30 mm straight graft (sinotubular junction to distal ascending aorta)/Left atrial maze, open surgical [posterior wall
isolation with left atrial appendage line]/left atrial appendage exclusion [35 mm clip], by Dr. Webster, 09/28/24
-Severe aortic valve stenosis with functional bicuspid morphology fused left and right coronary cusp with a moderate degree of aortic valve insufficiency
-Ascending aortic aneurysm measuring greater than 4.5 cm
-Mild pulmonary hypertension
-Mild tricuspid regurgitation
-Mild mitral regurgitation
-Mild pulmonary hypertension
- two-vessel coronary artery disease
-Left ventricular ejection fraction 60% per intraoperative transesophageal echocardiogram
-Atrial fibrillation
-Gastroesophageal reflux disease
-Seasonal allergies
-Diverticulosis
-Internal hemorrhoids
-Colon polyps
-Status post colonoscopy with polypectomy, 07/03/22
-Status post robotic Inguinal Herniorrhaphy, 06/23/2017
-Acute postoperative blood loss/Anemia (stable without blood transfusion)
-Acute postoperative atelectasis
-Acute postoperative hypovolemia with subsequent hypervolemia
-Acute postoperative probable acute pericarditis
-Acute kidney injury
Diet: Low Cholesterol and Low Sodium
Activity: No strenuous activity
Driving Restrictions: Not until seen by your Dr
Bathing Restrictions: OK to Shower
Other Services: Cardiac Rehab
Specialty Instructions: Weigh Daily- Call MD for wt gain/loss 3 lbs overnight/5 lbs in 1 week
Referrals:
CT Transitional Care Nurse [Outside]
(
The Cardiothoracic Transitional Care Nurse will call you to set up a visit in 1-2 days.)
[facility] [Outside] - 11/10/24 1:00 pm
(Cardiac Rehab Orientation appointment is on 11/10/24 at 1:00pm
The Cardiac Rehab gym is located on the first floor of the [facility].)
Cindy Valdovinos PA-C [Specified Professional Personl] -
Zay Webster MD [Active] - 11/01/24 1:00 pm
Vin Calvillo MD [Family Provider] - in four to six weeks (Please make an appointment in four to six weeks. )
Prescriptions:
New
colchicine 0.6 mg Tablet
0.3 mg PO DAILY 30 Days Qty: 15 0RF
aspirin 81 mg Tablet,Chewable
81 mg PO DAILY Qty: 30 0RF
amiodarone 200 mg Tablet
200 mg PO BID 30 Days Qty: 60 0RF
metoprolol succinate 25 mg Tablet Extended Release 24 Hr
12.5 mg PO BID Qty: 30 2RF
oxycodone 5 mg Tablet
5 mg PO Q6HPRN PRN (Reason: moderate pain) 7 Days Qty: 28 0RF
Continued
atorvastatin 40 mg tablet
40 mg PO DAILY Qty: 90 3RF
multivitamin Tablet
1 tab PO DAILY
famotidine 40 mg Tablet
40 mg PO DAILY
cyanocobalamin (vitamin B-12) [Vitamin B-12] 1,000 mcg Tablet
1,000 mcg PO DAILY
acetaminophen 500 mg Tablet
1,000 mg PO Q6H PRN (Reason: Pain)
Patient Comments:
'weeks ago'
ascorbic acid (vitamin C) [Vitamin C] 500 mg Tablet
500 mg PO DAILY
pyridoxine (vitamin B6) [Vitamin B-6] 100 mg Tablet
100 mg PO DAILY
fluticasone propionate [Flonase Allergy Relief] 50 mcg/actuation [place],Suspension
2 spray INTRANASAL DAILY PRN (Reason: Allergy Symptoms)
Patient Comments:
Fall 2023
folic acid 800 mcg Tablet
0.8 mg PO DAILY
Eliquis 5 mg Tablet
5 mg PO BID
Discontinued
metoprolol succinate 25 mg Tablet Extended Release 24 Hr
25 mg PO DAILY
Discharge Orders:
Discharge Patient (As Directed); Ordered 10/02/24
Ordered By: Raji Cruz
Discharge Date and Time
Print Language: TURKISH
--- NOTE | 2024-10-02 15:00 | PTCARENOTE ---
Pt showered prior to D/C, gianna, gabriela. D/C instructions reviewed with Pt and his , they expressed understanding.
== END 2024-10-02 15:56 | disposition home or self-care (01) | DRG 220 ==
LOC: IVU 04:55
PROVIDERS: Anesthesiology; Clinical Nurse Specialist Acute Care; Nurse Practitioner; ADMITTING PHYSICIAN Thoracic Surgery (Cardiothoracic Vascular Surgery); CONSULT PHYSICIAN Internal Medicine; CONSULT PHYSICIAN Nuclear Medicine Nuclear Cardiology; FAMILY PHYSICIAN Family Medicine
PROC: 5A1221Z Performance of Cardiac Output, Continuous (ICD-10-PCS; 2024-09-28)
PROC: 02RX0JZ Replacement of Thoracic Aorta, Ascending/Arch with Synthetic Substitute, Open Approach (ICD-10-PCS; 2024-09-28)
PROC: 02100Z9 Bypass Coronary Artery, One Artery from Left Internal Mammary, Open Approach (ICD-10-PCS; 2024-09-28)
PROC: 06BP4ZZ Excision of Right Saphenous Vein, Percutaneous Endoscopic Approach (ICD-10-PCS; 2024-09-28)
PROC: B24BZZ4 Ultrasonography of Heart with Aorta, Transesophageal (ICD-10-PCS; 2024-09-28)
PROC: 021009W Bypass Coronary Artery, One Artery from Aorta with Autologous Venous Tissue, Open Approach (ICD-10-PCS; 2024-09-28)
PROC: 02580ZZ Destruction of Conduction Mechanism, Open Approach (ICD-10-PCS; 2024-09-28)
PROC: 02L70CK Occlusion of Left Atrial Appendage with Extraluminal Device, Open Approach (ICD-10-PCS; 2024-09-28)
PROC: 02RF08Z Replacement of Aortic Valve with Zooplastic Tissue, Open Approach (ICD-10-PCS; 2024-09-28)
DX: I08.3 Combined rheumatic disorders of mitral, aortic and tricuspid valves (principal); D62 Acute posthemorrhagic anemia; J98.11 Atelectasis; I30.8 Other forms of acute pericarditis; N17.9 Acute kidney failure, unspecified; E87.1 Hypo-osmolality and hyponatremia; R73.9 Hyperglycemia, unspecified; E86.1 Hypovolemia; E87.70 Fluid overload, unspecified; I25.10 Atherosclerotic heart disease of native coronary artery without angina pectoris; I48.0 Paroxysmal atrial fibrillation; I71.21 Aneurysm of the ascending aorta, without rupture; I27.20 Pulmonary hypertension, unspecified; K21.9 Gastro-esophageal reflux disease without esophagitis; E78.5 Hyperlipidemia, unspecified; Z79.01 Long term (current) use of anticoagulants
CPT/HCPCS: 88305; 88311; 36415; 71045; 71046; 80048; 80053; 81003; 82248; 82330; 82565; 82805; 82810; 82947; 82962; 83036; 83735; 84132; 84302; 84520; 85014; 85018; 85025; 85027; 85049; 85610; 85730; 86850; 86900; 86901; 86920; 87070; 93005; 93312; 93320; 93325; 93880; 94002; J2916

== ENCOUNTER → 2024-10-25 11:19 | Outpatient (REF) | payer MEDICARE, SELFPAY | LOC: RAD 11:19 | PROVIDERS: ATTENDING PHYSICIAN Nurse Practitioner; FAMILY PHYSICIAN Family Medicine | DX: R05.9 Cough, unspecified (principal) | CPT/HCPCS: 71046 ==

== ENCOUNTER → 2024-10-26 09:28 | Outpatient (REF) | payer MEDICARE, SELFPAY ==
[2024-10-26 10:15] VITALS: BP 106/76; BP_SYST 75
[2024-10-26 10:50] VITALS: BP 106/76
== END ==
LOC: RADI 09:28
PROVIDERS: ATTENDING PHYSICIAN Thoracic Surgery (Cardiothoracic Vascular Surgery); FAMILY PHYSICIAN Family Medicine
DX: J90 Pleural effusion, not elsewhere classified (principal)
CPT/HCPCS: 32555; 71045

== ENCOUNTER → 2024-11-09 13:44 | Outpatient (REF) | payer MEDICARE, SELFPAY | LOC: RAD 13:44 | PROVIDERS: ATTENDING PHYSICIAN Thoracic Surgery (Cardiothoracic Vascular Surgery); FAMILY PHYSICIAN Family Medicine | DX: J90 Pleural effusion, not elsewhere classified (principal); R05.3 Chronic cough; Z98.890 Other specified postprocedural states | CPT/HCPCS: 71046 ==

== ENCOUNTER 2024-11-19 13:41 | Outpatient (RCR) | payer MEDICARE, SELFPAY | END 2024-11-19 23:59 | disposition home or self-care (01) | LOC: CRHB 13:41 | PROVIDERS: ATTENDING PHYSICIAN Internal Medicine Cardiovascular Disease | DX: Z95.1 Presence of aortocoronary bypass graft (principal); Z95.2 Presence of prosthetic heart valve | CPT/HCPCS: G0422; G0423 ==

== ENCOUNTER 2024-12-20 14:05 | Outpatient (RCR) | payer MEDICARE, SELFPAY | END 2024-12-20 23:59 | disposition home or self-care (01) | LOC: CRHB 14:05 | PROVIDERS: ATTENDING PHYSICIAN Internal Medicine Cardiovascular Disease | DX: Z95.1 Presence of aortocoronary bypass graft (principal); Z95.2 Presence of prosthetic heart valve; I25.10 Atherosclerotic heart disease of native coronary artery without angina pectoris | CPT/HCPCS: 71046; G0422; G0423 ==

== ENCOUNTER → 2025-01-18 14:37 | Outpatient (REF) | payer MEDICARE, SELFPAY | LOC: RCS 14:37 | PROVIDERS: ATTENDING PHYSICIAN Internal Medicine Cardiovascular Disease; FAMILY PHYSICIAN Family Medicine | DX: I48.0 Paroxysmal atrial fibrillation (principal); Q23.1 Congenital insufficiency of aortic valve; I35.1 Nonrheumatic aortic (valve) insufficiency | CPT/HCPCS: 93306 ==

== ENCOUNTER 2025-01-19 14:15 | Outpatient (RCR) | payer MEDICARE, SELFPAY | END 2025-01-19 23:59 | disposition home or self-care (01) | LOC: CRHB 14:15 | PROVIDERS: ATTENDING PHYSICIAN Internal Medicine Cardiovascular Disease | DX: Z95.1 Presence of aortocoronary bypass graft (principal); Z95.2 Presence of prosthetic heart valve; I25.10 Atherosclerotic heart disease of native coronary artery without angina pectoris | CPT/HCPCS: G0422; G0423 ==

== ENCOUNTER 2025-01-28 15:13 | Outpatient (RCR) | payer MEDICARE, SELFPAY ==
[2025-01-24 11:37] LABS: HDL Cholesterol 53 mg/dl; LDL Cholesterol, Calculated 81 mg/dl; Total Cholesterol 142 mg/dl (50-199); Triglyceride 44 mg/dl (10-149); Very Low Density Lipoprotein 8 mg/dl (0-30)
== END 2025-01-28 15:18 | disposition home or self-care (01) ==
LOC: CRHB 15:13
PROVIDERS: ATTENDING PHYSICIAN Internal Medicine Cardiovascular Disease
DX: Z95.1 Presence of aortocoronary bypass graft (principal); Z95.2 Presence of prosthetic heart valve
CPT/HCPCS: 36415; 80061; G0422; G0423

== ENCOUNTER → 2025-03-11 10:19 | Outpatient (REF) | payer MEDICARE, SELFPAY | LOC: RAD 10:19 | PROVIDERS: ATTENDING PHYSICIAN Family Medicine | DX: R79.89 Other specified abnormal findings of blood chemistry (principal) | CPT/HCPCS: 76700 ==

== ENCOUNTER → 2025-04-25 14:22 | Outpatient (REF) | payer MEDICARE, SELFPAY | LOC: RAD 14:22 | PROVIDERS: ATTENDING PHYSICIAN Thoracic Surgery (Cardiothoracic Vascular Surgery); FAMILY PHYSICIAN Family Medicine | DX: Z98.890 Other specified postprocedural states (principal) | CPT/HCPCS: 71275; Q9967 ==